=== PATIENT | female | born 1980 | race African-American/Black ===

== ENCOUNTER 2016-05-06 12:24 | Emergency (ER) | payer OTHER ==
[~2016-05-06] VITALS: Ht 162.6 cm; Wt 78.5 kg
[2016-05-06] MEDS ORDERED: IV NORMAL SALINE 1000ML BAG 1,000 ML IV SCH (13:06)
--- NOTE | 2016-05-06 13:13 | PHYS DOC ---
Past Medical History Past Medical History: Asthma, COPD, CVA, Depression, GERD, Seizure Past Surgical History: Hysterectomy, Other Additional Past Surgical Histo: BTL, LEFT SHOULDER Alcohol Use: Occasionally Drug Use: None Adult General Chief Complaint Chief Complaint: ABDOMINAL PAIN HPI HPI Patient is a 35 year old female who presents with pain for the last 2 days. His left upper quadrant sharp stabbing in nature that he makes it better or worse. She's been taking meloxicam for her left shoulder injury for the last several months. She also hasn't a bowel movement for 3 days. She's had a in the past otherwise no other abdominal surgeries. She has a history of seizures. Review of Systems Review of Systems Constitutional: Denies fever or chills [] Eyes: Denies change in visual acuity, redness, or eye pain [] HENT: Denies nasal congestion or sore throat [] Respiratory: Denies cough or shortness of breath [] Cardiovascular: No additional information not addressed in HPI [] GI: Denies nausea, vomiting, bloody stools or diarrhea, positive for abdominal pain [] : Denies dysuria or hematuria [] Musculoskeletal: Denies back pain or joint pain [] Integument: Denies rash or skin lesions [] Neurologic: Denies headache, focal weakness or sensory changes [] Endocrine: Denies polyuria or polydipsia [] Current Medications Current Medications Current Medications Medications (Trade) Dose Ordered Sig/Natividad Start Time Stop Time Status Last Admin Dose Admin Fentanyl Citrate (Fentanyl 2ml Vial) 50 mcg PRN Q15MIN PRN 05/06/16 13:45 05/07/16 13:44 05/06/16 15:27 50 MCG Iohexol (Omnipaque 300 Mg/ml) 75 ml 1X ONCE 05/06/16 14:00 05/06/16 14:01 DC Morphine Sulfate 4 mg 4 mg PRN Q15MIN PRN 05/06/16 13:15 05/06/16 13:36 DC Sodium Chloride (Iv Sodium Chloride 0.9% 1000ml Bag) 1,000 ml @ 1,000 mls/hr Q1H 05/06/16 13:06 05/06/16 14:05 DC 05/06/16 13:40 1,000 MLS/HR Allergies Allergies Allergies Coded Allergies Type Severity Reaction Last Updated Verified bupropion Allergy Unknown 05/06/16 No morphine Allergy Unknown 05/06/16 No Physical Exam Physical Exam Constitutional: Well developed, well nourished, no acute distress, non-toxic appearance. [] HENT: Normocephalic, atraumatic, bilateral external ears normal, oropharynx moist, no oral exudates, nose normal. [] Eyes: PERRLA, EOMI, conjunctiva normal, no discharge. [] Neck: Normal range of motion, no tenderness, supple, no stridor. [] Cardiovascular:Heart rate regular rhythm, no murmur [] Lungs & Thorax: Bilateral breath sounds clear to auscultation [] Abdomen: Bowel sounds hypoactive, soft, tender palpation left upper quadrant, no rebound or guarding, no masses, no pulsatile masses. [] Skin: Warm, dry, no erythema, no rash. [] Back: No tenderness, no CVA tenderness. [] Extremities: No tenderness, no cyanosis, no clubbing, ROM intact, no edema. [] Neurologic: Alert and oriented X 3, normal motor function, normal sensory function, no focal deficits noted. [] Psychologic: Affect normal, judgement normal, mood normal. [] Current Patient Data Vital Signs Vital Signs Date Time Temp Pulse Resp B/P Pulse Ox O2 Delivery O2 Flow Rate FiO2 05/06/16 15:27 Room Air 05/06/16 14:27 82 18 104/61 05/06/16 13:57 100 05/06/16 13:05 98.5 98.5 Lab Values Laboratory Tests Test 05/06/16 13:00 05/06/16 13:45 Urine Collection Type Unknown Urine Color Yellow Urine Clarity Cloudy Urine pH 6.5 Urine Specific [place] >=1.030 Urine Protein Negativemg/dL (NEG-TRACE) Urine Glucose (UA) Negativemg/dL (NEG) Urine Ketones (Stick) Negativemg/dL (NEG) Urine Blood Negative (NEG) Urine Nitrite Negative (NEG) Urine Bilirubin Negative (NEG) Urine Urobilinogen Dipstick 1.0mg/dL (0.2 mg/dL) Urine Leukocyte Esterase Negative (NEG) Urine RBC Occ/HPF (0-2) Urine WBC 1-4/HPF (0-4) Urine Squamous Epithelial Cells Many/LPF Urine Bacteria Moderate/HPF (0-FEW) Urine Mucus Mod/LPF Urine Opiates Screen Neg (NEG) Urine Methadone Screen Neg (NEG) Urine Barbiturates Neg (NEG) Urine Phencyclidine Screen Neg (NEG) Urine Amphetamine/Methamphetamine Neg (NEG) Urine Benzodiazepines Screen Neg (NEG) Urine Cocaine Screen Neg (NEG) Urine Cannabinoids Screen Neg (NEG) Urine Ethyl Alcohol Neg (NEG) White Blood Count 10.6x10^3/uL (4.0-11.0) Red Blood Count 3.76x10^6/uL (3.50-5.40) Hemoglobin 11.2g/dL (12.0-15.5) L Hematocrit 34.1% (36.0-47.0) L Mean Corpuscular Volume 91fL (79-100) Mean Corpuscular Hemoglobin 30pg (25-35) Mean Corpuscular Hemoglobin Concent 33g/dL (31-37) Red Cell Distribution Width 14.0% (11.5-14.5) Platelet Count 262x10^3/uL (140-400) Neutrophils (%) (Auto) 58% (31-73) Lymphocytes (%) (Auto) 35% (24-48) Monocytes (%) (Auto) 5% (0-9) Eosinophils (%) (Auto) 1% (0-3) Basophils (%) (Auto) 1% (0-3) Neutrophils # (Auto) 6.2x10^3uL (1.8-7.7) Lymphocytes # (Auto) 3.7x10^3/uL (1.0-4.8) Monocytes # (Auto) 0.5x10^3/uL (0.0-1.1) Eosinophils # (Auto) 0.1x10^3/uL (0.0-0.7) Basophils # (Auto) 0.1x10^3/uL (0.0-0.2) Sodium Level 141mmol/L (136-145) Potassium Level 4.1mmol/L (3.5-5.1) Chloride Level 109mmol/L (98-107) H Carbon Dioxide Level 24mmol/L (21-32) Anion Gap 8 (6-14) Blood Urea Nitrogen 16mg/dL (7-20) Creatinine 0.8mg/dL (0.6-1.0) Estimated GFR (Cockcroft-Gault) 98.8 BUN/Creatinine Ratio 20 (6-20) Glucose Level 108mg/dL (70-99) H Calcium Level 8.4mg/dL (8.5-10.1) L Total Bilirubin 0.2mg/dL (0.2-1.0) Direct Bilirubin < 0.1mg/dL (0.0-0.2) Aspartate Amino Transferase (AST) 11U/L (15-37) L Alanine Aminotransferase (ALT) 16U/L (14-59) Alkaline Phosphatase 50U/L (46-116) Creatine Kinase 71U/L (26-192) Total Protein 7.1g/dL (6.4-8.2) Albumin 3.7g/dL (3.4-5.0) Albumin/Globulin Ratio 1.1 (1.0-1.7) Lipase 125U/L (73-393) Laboratory Tests 05/06/16 13:45 Laboratory Tests 05/06/16 13:45 EKG EKG [] Radiology/Procedures Radiology/Procedures PATIENT: TRUMAN DUNCAN ACCOUNT: [id number] : 1980 LOCATION: ER AGE: 35 SEX: F EXAM STATUS: REG ER ORD. PHYSICIAN: MARS AVELAR MD REASON: abd pain PROCEDURE: ABD PELV W/ IV CONTRAST ONLY CT of the abdomen and pelvis with contrast, 05/06/2016: History: Abdominal pain, constipation Multidetector CT imaging was performed following an IV bolus injection of iodinated contrast material. No oral contrast material was administered as requested. The liver and gallbladder are unremarkable. No pancreatic abnormality is seen. The spleen is of normal size. A couple of tiny subcentimeter low density lesions are noted in the right kidney. These are too small to definitively characterize but are probably cysts. The kidneys show no evidence of obstruction. Single tiny intrarenal radiopacities bilaterally probably represent nonobstructing calculi. The uterus is surgically absent. There is a 2.4 cm low-density structure with an enhancing rim in the right pelvis, probably of ovarian origin. There is an adjacent 2.7 cm cystic appearing structure probably representing an additional ovarian cyst. There appears to be a trace amount of free fluid in the deep pelvis. This amount of fluid can be on a physiologic basis. The bowel loops are not dilated. There are scattered collections of stool in the colon. A portion of the appendix is visualized and shows no abnormality. No free air is evident in the abdomen or pelvis. IMPRESSION: 1. Small right ovarian cysts. 2. Single tiny bilateral nonobstructing intrarenal calculi 3. Probable small right renal cysts. DICTATED and SIGNED BY: JEY PHILLIPS MD DATE: 05/06/16 1548 CC: MARS AVELAR MD; UNKNOWN PCP NAME ~ Impressions: Abdomen pain Course & Med Decision Making Course & Med Decision Making Pertinent Labs and Imaging studies reviewed. (See chart for details) She presents with abdominal pain. CT abdomen pelvis is pending at this time. Patient rechecked at Dr. Mcdonough for final disposition. Adavied I took over at shift change. I reviewed his labs and vitals which were unremarkable and stable. CTA head and/pelvis doesn't show any significant aspiration for her discomfort, though she does have a fair amount of stool and has described some constipation. I have recommended MiraLAX, magnesium citrate and MiraLAX doesn't work, increase fluids and fiber, and primary care follow- up. Return precautions were discussed were answered prior to discharge. Dragon Disclaimer Dragon Disclaimer This electronic medical record was generated, in whole or in part, using a voice recognition dictation system. Departure Departure Impression: Primary Impression: Abdominal pain Additional Impression: Constipation Disposition: 01 HOME, SELF-CARE Condition: STABLE Referrals: UNKNOWN PCP NAME (PCP) Patient Instructions: Abdominal Pain, [id number], Constipation, Adult, Easy- to-Read Additional Instructions: Increase the fiber and fluid near diet. Take MiraLAX once to twice daily until you're having regular bowel movements. If you're unable to stimulate a large bowel movement with MiraLAX, consider purchasing magnesium citrate and drinking one half the bottle. If after 4 hours she still haven't had a bowel movement, drink the rest of the magnesium citrate. Follow-up with your primary care doctor in clinic soon. Take Tylenol or ibuprofen as needed for pain. Problem Qualifiers Primary Impression: Abdominal pain Abdominal location: left upper quadrant Qualified Code: R10.12 - Left upper quadrant pain Additional Impression: Constipation Constipation type: unspecified constipation type Qualified Code: K59.00 - Constipation, unspecified MARS AVELAR MD May 06, 2016 13:13 CINDY MCDONOUGH MD May 06, 2016 17:00
[2016-05-06] MEDS ORDERED: MORPHINE SULFATE 4 MG/ML DISP.SYRIN. IV/SQ PRN (13:15)
[2016-05-06 13:30] LABS: BILIRUBIN,URINE NEGATIVE (NEG); GLUCOSE,URINE NEGATIVE (NEG); NITRITE,URINE NEGATIVE (NEG); PH,URINE 6.5; PROTEIN,URINE NEGATIVE (NEG-TRACE)
[2016-05-06 13:37] LABS: BARBITURATES NEG (NEG); BENZODIAZEPINES NEG (NEG); CANNABINOIDS NEG (NEG); COCAINE NEG (NEG); METHADONE NEG (NEG); OPIATES NEG (NEG); PHENCYCLIDINE NEG (NEG)
[2016-05-06 13:38] LABS: ETHANOL, URINE NEG (NEG)
[2016-05-06 13:39] LABS: RBC,URINE OCC /HPF (0-2)
[2016-05-06 13:40] LABS: BACTERIA,URINE MODERATE /HPF (0-FEW); SQUAMOUS EPITHELIAL CELL,UR MANY /LPF
[2016-05-06] MEDS: FENTANYL PF 100 MCG/2 ML VIAL. IV PRN ×2 (13:40→15:27)
[2016-05-06] MEDS ORDERED: IOHEXOL 300 MG/ML 75 ML VIAL IV ONE (14:00)
[2016-05-06 14:16] LABS: BASO # 0.1 x10^3/uL (0.0-0.2); BASO % 1 % (0-3); EOS % 1 % (0-3); HEMATOCRIT 34.1 % (36.0-47.0); HEMOGLOBIN 11.2 g/dL (12.0-15.5); LYMPH # 3.7 x10^3/uL (1.0-4.8); LYMPH % 35 % (24-48); MEAN CORPUSCULAR HEMOGLOBIN 30 pg (25-35); MEAN CORPUSCULAR HGB CONC 33 g/dL (31-37); MEAN CORPUSCULAR VOLUME 91 fL (79-100); MONO % 5 % (0-9); NEUT % 58 % (31-73); PLATELET COUNT 262 x10^3/uL (140-400); RED BLOOD COUNT 3.76 x10^6/uL (3.50-5.40); WHITE BLOOD COUNT 10.6 x10^3/uL (4.0-11.0)
[2016-05-06 14:38] LABS: BLOOD UREA NITROGEN 16 mg/dL (7-20); CALCIUM 8.4 mg/dL (8.5-10.1); CREATININE 0.8 mg/dL (0.6-1.0); GLUCOSE 108 mg/dL (70-99)
[2016-05-06 14:39] LABS: ANION GAP 8 (6-14); BUN/CREATININE RATIO 20 (6-20); CARBON DIOXIDE 24 mmol/L (21-32); CHLORIDE 109 mmol/L (98-107); GFR 98.8; POTASSIUM 4.1 mmol/L (3.5-5.1); SODIUM 141 mmol/L (136-145)
[2016-05-06 14:52] LABS: ALBUMIN 3.7 g/dL (3.4-5.0); ALBUMIN/GLOBULIN RATIO 1.1 (1.0-1.7); ALK PHOS 50 U/L (46-116); ALT (SGPT) 16 U/L (14-59); AST (SGOT) 11 U/L (15-37); CREATINE KINASE 71 U/L (26-192); DIRECT BILIRUBIN < 0.1 mg/dL (0.0-0.2); TOTAL BILIRUBIN 0.2 mg/dL (0.2-1.0); TOTAL PROTEIN 7.1 g/dL (6.4-8.2)
--- NOTE | 2016-05-06 16:03 | RAD ---
CT of the abdomen and pelvis with contrast, 05/06/2016: History: Abdominal pain, constipation Multidetector CT imaging was performed following an IV bolus injection of iodinated contrast material. No oral contrast material was administered as requested. The liver and gallbladder are unremarkable. No pancreatic abnormality is seen. The spleen is of normal size. A couple of tiny subcentimeter low density lesions are noted in the right kidney. These are too small to definitively characterize but are probably cysts. The kidneys show no evidence of obstruction. Single tiny intrarenal radiopacities bilaterally probably represent nonobstructing calculi. The uterus is surgically absent. There is a 2.4 cm low-density structure with an enhancing rim in the right pelvis, probably of ovarian origin. There is an adjacent 2.7 cm cystic appearing structure probably representing an additional ovarian cyst. There appears to be a trace amount of free fluid in the deep pelvis. This amount of fluid can be on a physiologic basis. The bowel loops are not dilated. There are scattered collections of stool in the colon. A portion of the appendix is visualized and shows no abnormality. No free air is evident in the abdomen or pelvis. IMPRESSION: 1. Small right ovarian cysts. 2. Single tiny bilateral nonobstructing intrarenal calculi 3. Probable small right renal cysts.
[2016-05-06 16:27] VITALS: BP 140/63
== END 2016-05-06 17:25 | disposition home or self-care (01) ==
LOC: ER 12:24
DX: K59.00 Constipation, unspecified (principal); J45.909 Unspecified asthma, uncomplicated; J44.9 Chronic obstructive pulmonary disease, unspecified; F32.9 Major depressive disorder, single episode, unspecified; K21.9 Gastro-esophageal reflux disease without esophagitis; Z90.710 Acquired absence of both cervix and uterus; Z88.5 Allergy status to narcotic agent; Z88.8 Allergy status to other drugs, medicaments and biological substances
CPT/HCPCS: 36415; 74177; 80053; 80076; 81001; 82550; 83690; 85027; 87086; 96361; 96374; 99285; G0481; J3010; J7030; Q9967

== ENCOUNTER 2016-09-17 17:31 | Emergency (ER) | payer OTHER ==
[~2016-09-17] VITALS: Ht 162.6 cm; Wt 83.0 kg
--- NOTE | 2016-09-17 17:58 | PHYS DOC ---
Past Medical History Past Medical History: Asthma, COPD, CVA, Depression, GERD, Seizure Additional Past Medical Histor: R SIDE DEFICITS Past Surgical History: Hysterectomy, Other Additional Past Surgical Histo: BTL, LEFT SHOULDER Alcohol Use: Rarely Drug Use: None Adult General Chief Complaint Chief Complaint: ABDOMINAL PAIN HPI HPI Patient is a 36 year old female who presents with left flank pain has been present for the last week and a half. Patient states that the left flank pain has gotten worse the past couple days with a history of kidney stones. Patient denies any fevers. Patient denies any dysuria. Patient denies any chest pain or shortness of breath. Patient denies any nausea vomiting or diarrhea. Patient is no other complaints. Pertinent exam findings: Positive CVA tenderness on the left with left flank pain on palpation ED course: Patient seen and examined upon arrival to emergency room CBC, CMP, UA, U , CT of abdomen and pelvis without contrast was ordered 2025: Explain CT results and lab results the patient and recommended discharge with short-term follow-up with PCP. Pertinent results: CT the abdomen and pelvis with contrast: IMPRESSION: 1. Nonobstructive left renal stones without hydronephrosis or definite radiopaque obstructive ureter stone. Laboratory was unremarkable MDM: After reviewing the chart, CC/HPI/PMH, physical exam, [lab results], [ radiological results], I do not believe the patient has intra-abdominal emergency warranting further workup and/or admission at this time. I believe the patient's pain is caused from renal colic and prescribe her some [place]. Recommended patient follow PCP in one to 2 days. Additional verbal discharge instructions were provided to the patient and that if symptoms get worse or any new symptoms arise that are worrisome to the patient she is to return to the emergency room immediately Review of Systems Review of Systems GEN: Denies fevers, chills, sweats HEENT: Denies blurred vision, sore throat CV: Denies chest pain RESP: Denies shortness of air, cough GI: Flank pain NEURO: Denies confusion, dizziness MSK: Denies weakness, joint pain/swelling Current Medications Current Medications Current Medications Medications (Trade) Dose Ordered Sig/Natividad Start Time Stop Time Status Last Admin Dose Admin Fentanyl Citrate (Fentanyl 2ml Vial) 100 mcg STK-MED ONCE 09/17/16 20:28 09/17/16 20:29 DC Ketorolac Tromethamine (Toradol) 30 mg 1X ONCE 09/17/16 18:00 09/17/16 18:01 DC 09/17/16 19:30 30 MG Sodium Chloride 1,000 ml @ 1,000 mls/hr 1X ONCE 09/17/16 18:00 09/17/16 18:59 DC 09/17/16 19:30 1,000 MLS/HR Allergies Allergies Allergies Coded Allergies Type Severity Reaction Last Updated Verified bupropion Allergy Unknown 05/06/16 No morphine Allergy Unknown 05/06/16 No Physical Exam Physical Exam GEN.: No apparent distress. Alert and oriented. HEENT: Head is normocephalic, atraumatic NECK: Supple. LUNGS: CTAB. HEART: RRR, S1, S2 present. Peripheral pulses intact ABDOMEN: Soft, left flank pain with palpation, left CVA tenderness. Positive bowel sounds. EXTREMITIES: Without any cyanosis. NEUROLOGIC: Normal speech, normal tone PSYCHIATRIC: Normal affect, normal mood. SKIN: No ulcerations Current Patient Data Vital Signs Vital Signs Date Time Temp Pulse Resp B/P (MAP) Pulse Ox O2 Delivery O2 Flow Rate FiO2 09/17/16 20:33 20 97 Room Air 09/17/16 17:50 98.8 95 112/72 (85) 98.8 Lab Values Laboratory Tests Test 09/17/16 17:55 09/17/16 19:45 Urine Collection Type Unknown Urine Color Yellow Urine Clarity Turbid Urine pH 7.5 Urine Specific [place] 1.020 Urine Protein Negative mg/dL (NEG-TRACE) Urine Glucose (UA) Negative mg/dL (NEG) Urine Ketones (Stick) Negative mg/dL (NEG) Urine Blood Negative (NEG) Urine Nitrite Negative (NEG) Urine Bilirubin Negative (NEG) Urine Urobilinogen Dipstick 1.0 mg/dL (0.2 mg/dL) Urine Leukocyte Esterase Negative (NEG) Urine RBC 0 /HPF (0-2) Urine WBC Occ /HPF (0-4) Urine Squamous Epithelial Cells Mod /LPF Urine Amorphous Sediment Present /HPF Urine Bacteria Few /HPF (0-FEW) White Blood Count 13.6 x10^3/uL (4.0-11.0) H Red Blood Count 4.01 x10^6/uL (3.50-5.40) Hemoglobin 12.0 g/dL (12.0-15.5) Hematocrit 34.7 % (36.0-47.0) L Mean Corpuscular Volume 87 fL (79-100) Mean Corpuscular Hemoglobin 30 pg (25-35) Mean Corpuscular Hemoglobin Concent 35 g/dL (31-37) Red Cell Distribution Width 14.2 % (11.5-14.5) Platelet Count 306 x10^3/uL (140-400) Neutrophils (%) (Auto) 54 % (31-73) Lymphocytes (%) (Auto) 39 % (24-48) Monocytes (%) (Auto) 5 % (0-9) Eosinophils (%) (Auto) 2 % (0-3) Basophils (%) (Auto) 1 % (0-3) Neutrophils # (Auto) 7.4 x10^3uL (1.8-7.7) Lymphocytes # (Auto) 5.3 x10^3/uL (1.0-4.8) H Monocytes # (Auto) 0.7 x10^3/uL (0.0-1.1) Eosinophils # (Auto) 0.2 x10^3/uL (0.0-0.7) Basophils # (Auto) 0.1 x10^3/uL (0.0-0.2) Sodium Level 142 mmol/L (136-145) Potassium Level 3.6 mmol/L (3.5-5.1) Chloride Level 107 mmol/L (98-107) Carbon Dioxide Level 21 mmol/L (21-32) Anion Gap 14 (6-14) Blood Urea Nitrogen 15 mg/dL (7-20) Creatinine 0.9 mg/dL (0.6-1.0) Estimated GFR (Cockcroft-Gault) 85.7 BUN/Creatinine Ratio 17 (6-20) Glucose Level 104 mg/dL (70-99) H Calcium Level 9.6 mg/dL (8.5-10.1) Total Bilirubin 0.1 mg/dL (0.2-1.0) L Aspartate Amino Transferase (AST) 11 U/L (15-37) L Alanine Aminotransferase (ALT) 17 U/L (14-59) Alkaline Phosphatase 72 U/L (46-116) Total Protein 8.1 g/dL (6.4-8.2) Albumin 4.0 g/dL (3.4-5.0) Albumin/Globulin Ratio 1.0 (1.0-1.7) Lipase 88 U/L (73-393) Laboratory Tests 09/17/16 19:45 Laboratory Tests 09/17/16 19:45 EKG EKG [] Radiology/Procedures Radiology/Procedures CT the abdomen and pelvis without contrast IMPRESSION: 1. Nonobstructive left renal stones without hydronephrosis or definite radiopaque obstructive ureter stone. [] Course & Med Decision Making Course & Med Decision Making Pertinent Labs and Imaging studies reviewed. (See chart for details) [] Dragon Disclaimer Dragon Disclaimer This electronic medical record was generated, in whole or in part, using a voice recognition dictation system. Departure Departure Impression: Primary Impression: Left flank pain Additional Impression: Renal colic Disposition: HOME, SELF-CARE Condition: IMPROVED Referrals: UNKNOWN PCP NAME (PCP) Patient Instructions: Flank Pain, [id number] Additional Instructions: Please follow up with her family doctor in one to 2 days Scripts Hydrocodone/Apap 5-325 (NORCO 5-325 TABLET) 1 Each Tablet 1 TAB PO PRN Q6HRS Y for PAIN for 2 Days, #10 TAB 0 Refills Prov: AMARILIS CERVANTES DO 09/17/16 Problem Qualifiers AMARILIS CERVANTES DO September 17, 2016 17:58
[2016-09-17] MEDS ORDERED: IV NORMAL SALINE 1000ML BAG 1,000 ML IV ONE (18:00)
[2016-09-17] MEDS ORDERED: KETOROLAC TROMETHAMINE 30 MG/ML INJ. IV ONE (18:00)
[2016-09-17 18:30] LABS: BILIRUBIN,URINE NEGATIVE (NEG); GLUCOSE,URINE NEGATIVE (NEG); NITRITE,URINE NEGATIVE (NEG); PH,URINE 7.5; PROTEIN,URINE NEGATIVE (NEG-TRACE)
--- NOTE | 2016-09-17 18:39 | RAD ---
INDICATION: severe left flank pain, hx kidney stones, prior sent COMPARISON: May 06, 2016 TECHNIQUE: Axial CT images were obtained through the abdomen and pelvis without intravenous contrast. Limited assessment of solid organ structures and vasculature secondary to lack of intravenous contrast. One or more of the following individualized dose reduction techniques were utilized for this examination: 1. Automated exposure control; 2. Adjustment of the mA and/or kV according to patient size; 3. Use of iterative reconstruction technique. FINDINGS: Abdomen: Chest Base: Partially imaged without gross abnormality. Vessels: No abdominal aortic aneurysm. Liver/Biliary: No intrahepatic biliary duct dilation. Pancreas: No peripancreatic edema. Spleen: Normal. Kidneys/Adrenal: Multiple nonobstructive left renal stones measuring up to 3 mm. No hydronephrosis. GI: The appendix does not appear grossly inflamed. No dilated loops of bowel suggest obstruction. Pelvis: Bladder: Largely decompressed IMPRESSION: 1. Nonobstructive left renal stones without hydronephrosis or definite radiopaque obstructive ureter stone. Electronically signed by: Yossi Garnica MD (09/17/2016 6:36 PM)
[2016-09-17 18:50] LABS: BACTERIA,URINE FEW /HPF (0-FEW); RBC,URINE 0 /HPF (0-2); SQUAMOUS EPITHELIAL CELL,UR MOD /LPF; WBC,URINE OCC /HPF (0-4)
[2016-09-17 19:53] LABS: BASO # 0.1 x10^3/uL (0.0-0.2); BASO % 1 % (0-3); EOS % 2 % (0-3); HEMATOCRIT 34.7 % (36.0-47.0); LYMPH # 5.3 x10^3/uL (1.0-4.8); LYMPH % 39 % (24-48); MEAN CORPUSCULAR HEMOGLOBIN 30 pg (25-35); MEAN CORPUSCULAR HGB CONC 35 g/dL (31-37); MEAN CORPUSCULAR VOLUME 87 fL (79-100); MONO % 5 % (0-9); NEUT % 54 % (31-73); PLATELET COUNT 306 x10^3/uL (140-400); RED BLOOD COUNT 4.01 x10^6/uL (3.50-5.40); RED CELL DISTRIBUTION WIDTH 14.2 % (11.5-14.5); WHITE BLOOD COUNT 13.6 x10^3/uL (4.0-11.0)
[2016-09-17 20:10] LABS: CALCIUM 9.6 mg/dL (8.5-10.1); CREATININE 0.9 mg/dL (0.6-1.0); GFR 85.7; POTASSIUM 3.6 mmol/L (3.5-5.1)
[2016-09-17 20:15] LABS: TOTAL BILIRUBIN 0.1 mg/dL (0.2-1.0); TOTAL PROTEIN 8.1 g/dL (6.4-8.2)
[2016-09-17] MEDS ORDERED: fentaNYL PF VIAL 100 MCG/2 ML VIAL ONE (20:28)
[2016-09-17 20:30] VITALS: BP 161/72
[2016-09-17] MEDS ORDERED: fentaNYL PF VIAL 100 MCG/2 ML VIAL IV ONE (20:30)
[2016-09-17] MEDS ORDERED: HYDR-971 PO (20:31)
== END 2016-09-17 20:40 | disposition home or self-care (01) ==
LOC: ER 17:31
DX: N23 Unspecified renal colic (principal); J45.909 Unspecified asthma, uncomplicated; J44.9 Chronic obstructive pulmonary disease, unspecified; F32.9 Major depressive disorder, single episode, unspecified; K21.9 Gastro-esophageal reflux disease without esophagitis; Z90.710 Acquired absence of both cervix and uterus; Z88.5 Allergy status to narcotic agent; Z88.8 Allergy status to other drugs, medicaments and biological substances; Z86.73 Personal history of transient ischemic attack (TIA), and cerebral infarction without residual deficits
CPT/HCPCS: 36415; 74176; 80053; 81001; 83690; 85027; 96361; 96374; 96375; 99285; J1885; J3010; J7030

== ENCOUNTER 2017-04-02 16:00 | Emergency (ER) | payer OTHER ==
[~2017-04-02] VITALS: Ht 162.6 cm; Wt 89.4 kg
[~2017-04-02 16:00] MED LIST: HYDR-971 PO
[2017-04-02 16:06] VITALS: BP 151/76
[2017-04-02] MEDS ORDERED: HYDR25SU18 RC (16:22)
[2017-04-02] MEDS ORDERED: HYDR30CR61 TP (16:22)
--- NOTE | 2017-04-02 16:22 | PHYS DOC ---
Past Medical History Past Medical History: Asthma, COPD, CVA, Depression, GERD, Seizure Additional Past Medical Histor: R SIDE DEFICITS Past Surgical History: Hysterectomy, Tubal ligation, Other Additional Past Surgical Histo: BTL, LEFT SHOULDER Alcohol Use: Rarely Drug Use: None Adult General Chief Complaint Chief Complaint: HEMORRHOIDS [facility] HPI Patient is a 36 year old female presents to the emergency department with complaints of hemorrhoid pain. Patient states for 3 weeks she's had pain in the hemorrhoids. She is using [id number] Anusol and Tucks pads without relief of symptoms. She reports that she has seen a pan washer in the past related to her hemorrhoids. She states she is not constipated. She has had intermittent episodes of diarrhea and is currently taking stool softeners. She denies abdominal pain. Review of Systems Review of Systems Constitutional: Denies fever or chills [] Eyes: Denies change in visual acuity, redness, or eye pain [] HENT: Denies nasal congestion or sore throat [] Respiratory: Denies cough or shortness of breath [] Cardiovascular: No additional information not addressed in HPI [] GI: Denies abdominal pain, nausea, vomiting, bloody stools or diarrhea [] : Denies dysuria or hematuria , complain of hemorrhoids Musculoskeletal: Denies back pain or joint pain [] Integument: Denies rash or skin lesions [] Neurologic: Denies headache, focal weakness or sensory changes [] Endocrine: Denies polyuria or polydipsia [] All other systems were reviewed and found to be within normal limits, except as documented in this note. Allergies Allergies Allergies Coded Allergies Type Severity Reaction Last Updated Verified bupropion Allergy Unknown 05/06/16 No morphine Allergy Unknown 05/06/16 No Physical Exam Physical Exam Constitutional: Well developed, well nourished, no acute distress, non-toxic appearance. [] Cardiovascular:Heart rate regular rhythm, no murmur [] Lungs & Thorax: Bilateral breath sounds clear to auscultation [] Abdomen: Bowel sounds normal, soft, no tenderness, no masses, no pulsatile masses. Sternal hemorrhoids, nonthrombosed[] EKG EKG [] Radiology/Procedures Radiology/Procedures [] Course & Med Decision Making Course & Med Decision Making Pertinent Labs and Imaging studies reviewed. (See chart for details) [] Dragon Disclaimer Dragon Disclaimer This electronic medical record was generated, in whole or in part, using a voice recognition dictation system. Departure Departure Impression: Primary Impression: External hemorrhoid Disposition: 01 HOME, SELF-CARE Condition: STABLE Referrals: UNKNOWN PCP NAME (PCP) Patient Instructions: Hemorrhoids Additional Instructions: Follow up gastroenterology, [phone] Scripts Hydrocortisone (ANUSOL-HC) 30 Gm Cream..g. 1 TY TP BID, #30 GM 1 Refill Prov: ANTWON ROSAS APRN 04/02/17 Hydrocortisone Acetate (ANUSOL-HC) 25 Mg Supp.rect 1 SUPP RC BID, #28 SUPP 1 Refill Prov: ANTWON ROSAS APRN 04/02/17 ANTWON ROSAS APRN Apr 02, 2017 16:22
== END 2017-04-02 16:33 | disposition home or self-care (01) ==
LOC: ER 16:00
DX: K64.4 Residual hemorrhoidal skin tags (principal); J44.9 Chronic obstructive pulmonary disease, unspecified; F32.9 Major depressive disorder, single episode, unspecified; K21.9 Gastro-esophageal reflux disease without esophagitis; Z86.73 Personal history of transient ischemic attack (TIA), and cerebral infarction without residual deficits; Z90.710 Acquired absence of both cervix and uterus; Z98.51 Tubal ligation status; Z88.5 Allergy status to narcotic agent; Z88.8 Allergy status to other drugs, medicaments and biological substances
CPT/HCPCS: 99283

== ENCOUNTER 2017-04-26 16:34 | Emergency (ER) | payer OTHER ==
[2017-04-26 17:46] LABS: ADD MAN DIFF? NO
[2017-04-26 17:49] LABS: BASO # 0.1 x10^3/uL (0.0-0.2); BASO % 1 % (0-3); EOS # 0.1 x10^3/uL (0.0-0.7); EOS % 1 % (0-3); HEMATOCRIT 35.9 % (36.0-47.0); HEMOGLOBIN 12.4 g/dL (12.0-15.5); LYMPH # 4.6 x10^3/uL (1.0-4.8); LYMPH % 43 % (24-48); MEAN CORPUSCULAR HEMOGLOBIN 29 pg (25-35); MEAN CORPUSCULAR HGB CONC 35 g/dL (31-37); MEAN CORPUSCULAR VOLUME 84 fL (79-100); MONO # 0.4 x10^3/uL (0.0-1.1); MONO % 4 % (0-9); NEUT # 5.4 x10^3uL (1.8-7.7); NEUT % 51 % (31-73); PLATELET COUNT 383 x10^3/uL (140-400); RED BLOOD COUNT 4.28 x10^6/uL (3.50-5.40); RED CELL DISTRIBUTION WIDTH 14.4 % (11.5-14.5); WHITE BLOOD COUNT 10.7 x10^3/uL (4.0-11.0)
[2017-04-26] MEDS: cloNIDine HCL 0.1 MG TABLET PO (17:57)
[2017-04-26 17:58] LABS: URINE HCG POC HCG NEGATIVE (Negative)
[2017-04-26 18:02] LABS: ANION GAP 11 (6-14); BLOOD UREA NITROGEN 9 mg/dL (7-20); BUN/CREATININE RATIO 11 (6-20); CALCIUM 8.6 mg/dL (8.5-10.1); CARBON DIOXIDE 25 mmol/L (21-32); CHLORIDE 105 mmol/L (98-107); CREATININE 0.8 mg/dL (0.6-1.0); GFR 98.2; GLUCOSE 91 mg/dL (70-99); POTASSIUM 3.5 mmol/L (3.5-5.1); SODIUM 141 mmol/L (136-145)
[2017-04-26 18:09] LABS: ALBUMIN 3.7 g/dL (3.4-5.0); ALBUMIN/GLOBULIN RATIO 0.9 (1.0-1.7); ALK PHOS 70 U/L (46-116); ALT (SGPT) 18 U/L (14-59); AST (SGOT) 13 U/L (15-37); TOTAL BILIRUBIN 0.3 mg/dL (0.2-1.0); TOTAL PROTEIN 7.6 g/dL (6.4-8.2)
[2017-04-26 18:19] LABS: BILIRUBIN,URINE NEGATIVE (NEG); CLARITY,URINE CLOUDY; COLOR,URINE AMBER; GLUCOSE,URINE NEGATIVE (NEG); NITRITE,URINE POSITIVE (NEG); PROTEIN,URINE NEGATIVE (NEG-TRACE); UROBILINOGEN,URINE 0.2 mg/dL (0.2 mg/dL)
[2017-04-26 18:35] LABS: BACTERIA,URINE MANY /HPF (0-FEW); SQUAMOUS EPITHELIAL CELL,UR MANY /LPF
== END 2017-04-26 19:27 | disposition home or self-care (01) ==
LOC: ER 16:34
DX: F13.239 Sedative, hypnotic or anxiolytic dependence with withdrawal, unspecified (principal); F41.9 Anxiety disorder, unspecified; J44.9 Chronic obstructive pulmonary disease, unspecified; K21.9 Gastro-esophageal reflux disease without esophagitis; Z86.73 Personal history of transient ischemic attack (TIA), and cerebral infarction without residual deficits; Z87.820 Personal history of traumatic brain injury; Z90.710 Acquired absence of both cervix and uterus; Z98.51 Tubal ligation status; Z88.5 Allergy status to narcotic agent; Z88.8 Allergy status to other drugs, medicaments and biological substances; T42.4X5A Adverse effect of benzodiazepines, initial encounter; Y92.89 Other specified places as the place of occurrence of the external cause
CPT/HCPCS: 36415; 71045; 80053; 81001; 81025; 85025; 87086; 87186; 93005; 99285-25

== ENCOUNTER 2017-09-27 17:30 | Emergency (ER) | payer OTHER ==
[2017-09-27] MEDS: predniSONE 20 MG TABLET PO (18:06)
[2017-09-27] MEDS: HYDROcodone/APAP 5/325MG 1 TAB TABLET PO (18:06)
[2017-09-27] MEDS ORDERED: KETOROLAC 60 MG/2 ML INJ. IM (18:15)
[2017-09-27] MEDS ORDERED: fentaNYL PF VIAL 100 MCG/2 ML VIAL IM (18:15)
== END 2017-09-27 18:17 | disposition home or self-care (01) ==
LOC: ER 18:17
DX: S39.012A Strain of muscle, fascia and tendon of lower back, initial encounter (principal); J44.9 Chronic obstructive pulmonary disease, unspecified; K21.9 Gastro-esophageal reflux disease without esophagitis; Z86.73 Personal history of transient ischemic attack (TIA), and cerebral infarction without residual deficits; Z90.710 Acquired absence of both cervix and uterus; Z98.51 Tubal ligation status; Z88.5 Allergy status to narcotic agent; Z88.8 Allergy status to other drugs, medicaments and biological substances; Z91.040 Latex allergy status; X50.0XXA Overexertion from strenuous movement or load, initial encounter; Y93.89 Activity, other specified; Y99.8 Other external cause status; Y92.89 Other specified places as the place of occurrence of the external cause
CPT/HCPCS: 99283; J7512

== ENCOUNTER 2017-12-03 17:17 | Emergency (ER) | payer OTHER ==
[~2017-12-03] VITALS: Ht 162.6 cm; Wt 80.7 kg
[~2017-12-03 17:17] MED LIST changes: +ACET325T9 PO; +AMIT25TA PO; +BACL10TA PO; +BUDE0.5A NEB; +CLON0.1T12 PO; +CLON0.5T11 PO; +DOCU-109 PO; +FAMO20TA5 PO; +FLUT16SP NS; +GUAI600T47 PO; +HYDR25SU18 RC; +HYDR30CR61 TP; +LEVO500T59 PO; +MELO7.5T29 PO; +Pantoprazole PO; +QUET100T4 PO; +VENL150C6 PO
[2017-12-03 17:35] VITALS: BP 109/72
[2017-12-03] MEDS ORDERED: IBUPROFEN 800 MG TABLET. PO ONE (17:45)
[2017-12-03] MEDS ORDERED: DEXAMETHASONE SOD PHOS 4 MG/ML VIAL IM ONE (17:45)
[2017-12-03] MEDS ORDERED: AMOX1TAB61 PO (18:01)
--- NOTE | 2017-12-03 18:01 | PHYS DOC ---
Past Medical History Past Medical History: Anxiety, Asthma, COPD, CVA, Depression, GERD, Seizure, Stroke Additional Past Medical Histor: R SIDE DEFICITS, TBI, INSOMNIA Past Surgical History: Hysterectomy, Tubal ligation, Other Additional Past Surgical Histo: BTL, LEFT CLAVICLE Alcohol Use: None Drug Use: None Adult General Chief Complaint Chief Complaint: SORE THROAT HPI HPI Patient is a 37 year old female presents to the ED complaining of sore throat 3 days. Associated symptoms include subjective fever, rhinorrhea and headache. Describes the pain as sharp. Rates the pain as 6 out of 10. Pain with swallowing. Denies dysuria, abdominal pain, chest pain, shortness of breath, nausea/vomiting, diarrhea, blood in stool or weakness. Review of Systems Review of Systems Constitutional: Complains of subjective fever. Denies chills [] Eyes: Denies change in visual acuity, redness, or eye pain [] HENT: Complains of sore throat and rhinorrhea. Respiratory: Denies cough or shortness of breath [] Cardiovascular: No additional information not addressed in HPI [] GI: Denies abdominal pain, nausea, vomiting, bloody stools or diarrhea [] : Denies dysuria or hematuria [] Musculoskeletal: Denies back pain or joint pain [] Integument: Denies rash or skin lesions [] Neurologic: Denies headache, focal weakness or sensory changes [] All other systems were reviewed and found to be within normal limits, except as documented in this note. Current Medications Current Medications Current Medications Medications (Trade) Dose Ordered Sig/[facility] Start Time Stop Time Status Last Admin Dose Admin Dexamethasone Sodium Phosphate (Decadron) 8 mg 1X ONCE 12/03/17 17:45 12/03/17 17:46 DC 12/03/17 18:01 8 MG Ibuprofen (Motrin) 800 mg 1X ONCE 12/03/17 17:45 12/03/17 17:46 DC Allergies Allergies Allergies Coded Allergies Type Severity Reaction Last Updated Verified amoxicillin Allergy Severe diarrhea 12/03/17 Yes clavulanic acid Allergy Severe diarrhea 12/03/17 Yes Latex, Natural Rubber Allergy Intermediate Rash 08/14/17 Yes bupropion Allergy Intermediate 08/15/17 No morphine Allergy Intermediate 08/15/17 No diphenhydramine Adverse Reaction Intermediate OTHER 08/14/17 Yes Physical Exam Physical Exam Constitutional: Well developed, well nourished, no acute distress, non-toxic appearance. [] HENT: Normocephalic, atraumatic, bilateral external ears normal, oropharynx moist, nose normal. mild pharyngeal erythema with exudate. uvula midline.[] Eyes: PERRLA, EOMI, conjunctiva normal, no discharge. [] Neck: Normal range of motion, no tenderness, supple, no stridor. [] Cardiovascular:Heart rate regular rhythm, no murmur [] Lungs & Thorax: Bilateral breath sounds clear to auscultation [] Abdomen: Bowel sounds normal, soft, no tenderness, no masses, no pulsatile masses. [] Skin: Warm, dry, no erythema, no rash. [] Neurologic: Alert and oriented X 3, normal motor function, normal sensory function, no focal deficits noted. [] Psychologic: Affect normal, judgement normal, mood normal. [] Current Patient Data Vital Signs Vital Signs Date Time Temp Pulse Resp B/P (MAP) Pulse Ox O2 Delivery O2 Flow Rate FiO2 12/03/17 17:35 99.1 110 20 109/72 (84) 100 Room Air 99.1 EKG EKG [] Radiology/Procedures Radiology/Procedures [] Course & Med Decision Making Course & Med Decision Making Pertinent Labs and Imaging studies reviewed. (See chart for details) []Patient improved in the ED. States she is feeling much better. We'll treat for pharyngitis outpatient with clindamycin. Discussed symptomatic treatment, hydration, [id number] medications. Discussed follow-up and reasons to return to the ED. Patient understands and agrees with plan. Dragon Disclaimer Dragon Disclaimer This electronic medical record was generated, in whole or in part, using a voice recognition dictation system. Departure Departure Impression: Primary Impression: Pharyngitis Disposition: HOME, SELF-CARE Condition: IMPROVED Referrals: UNKNOWN PCP NAME (PCP) JOSE CARPENTER MD Patient Instructions: Viral and Bacterial Pharyngitis Scripts Clindamycin Hcl (CLINDAMYCIN HCL) 300 Mg Capsule 1 CAP PO TID for 10 Days, #30 CAP Prov: VALERY SOLITARIO 12/03/17 VALERY SOLITARIO Dec 03, 2017 18:01
[2017-12-03] MEDS ORDERED: CLIN300C8 PO (18:08)
== END 2017-12-03 18:07 | disposition home or self-care (01) ==
LOC: ER 17:17
DX: J02.9 Acute pharyngitis, unspecified (principal); R51 Headache; R50.9 Fever, unspecified; J44.9 Chronic obstructive pulmonary disease, unspecified; K21.9 Gastro-esophageal reflux disease without esophagitis; Z86.73 Personal history of transient ischemic attack (TIA), and cerebral infarction without residual deficits; Z88.1 Allergy status to other antibiotic agents; Z88.5 Allergy status to narcotic agent; Z88.8 Allergy status to other drugs, medicaments and biological substances; Z91.040 Latex allergy status
CPT/HCPCS: 96372; 99283; J1100

== ENCOUNTER 2018-01-24 11:13 | Emergency (ER) | payer OTHER ==
[~2018-01-24] VITALS: Ht 162.6 cm; Wt 83.5 kg
[~2018-01-24 11:13] MED LIST changes: +AMOX1TAB61 PO; +CLIN300C8 PO
[2018-01-24 11:25] VITALS: BP 131/62
[2018-01-24] MEDS ORDERED: NAPROXEN 500 MG TABLET PO STA (11:49)
[2018-01-24] MEDS ORDERED: HYDROcodone/APAP 5/325MG 1 TAB TABLET PO ONE (12:00)
--- NOTE | 2018-01-24 12:27 | PHYS DOC ---
Past Medical History Past Medical History: Anxiety, Asthma, COPD, CVA, Depression, GERD, Seizure, Stroke Additional Past Medical Histor: R SIDE DEFICITS, TBI, INSOMNIA Past Surgical History: Hysterectomy, Tubal ligation, Other Additional Past Surgical Histo: [place] [facility] [place] Use: None Drug Use: None Adult General Chief Complaint Chief Complaint: MECHANICAL FALL HPI HPI Patient is a 37 year old female with history of CVA, anxiety, COPD, who presents today to be evaluated status post falling. Patient states yesterday she was walking down some steps when she slid and fell down 5 steps. Patient denies any loss of consciousness. She states she has 8 out of 10 pain to her left shoulder, right hip, right knee and right ankle. Patient denies any neck pain. Denies any head pain. Denies any hematuria. Review of Systems Review of Systems Constitutional: Denies fever or chills [] Eyes: Denies change in visual acuity, redness, or eye pain [] HENT: Denies nasal congestion or sore throat [] Respiratory: Denies cough or shortness of breath [] Cardiovascular: No additional information not addressed in HPI [] GI: Denies abdominal pain, nausea, vomiting, bloody stools or diarrhea [] : Denies dysuria or hematuria [] Musculoskeletal: Reports left shoulder pain, right hip pain, right knee and right ankle pain] Integument: Denies rash or skin lesions [] Neurologic: Denies headache, focal weakness or sensory changes [] All other systems were reviewed and found to be within normal limits, except as documented in this note. Current Medications Current Medications Current Medications Medications (Trade) Dose Ordered Sig/Natividad Start Time Stop Time Status Last Admin Dose Admin Acetaminophen/ Hydrocodone Bitart (Lortab 5/325) 2 tab 1X ONCE 01/24/18 12:00 01/24/18 12:01 DC 01/24/18 12:00 2 TAB Naproxen (Naprosyn) 500 mg 1X STAT 01/24/18 11:49 01/24/18 11:51 DC 01/24/18 11:59 500 MG Allergies Allergies Allergies Coded Allergies Type Severity Reaction Last Updated Verified amoxicillin Allergy Severe diarrhea 12/03/17 Yes clavulanic acid Allergy Severe diarrhea 12/03/17 Yes Latex, Natural Rubber Allergy Intermediate Rash 08/14/17 Yes bupropion Allergy Intermediate 08/15/17 No morphine Allergy Intermediate 08/15/17 No diphenhydramine Adverse Reaction Intermediate OTHER 08/14/17 Yes Physical Exam Physical Exam Constitutional: Well developed, well nourished, no acute distress, non-toxic appearance. [] HENT: Normocephalic, atraumatic, bilateral external ears normal, oropharynx moist, no oral exudates, nose normal. [] Eyes: PERRLA, EOMI, conjunctiva normal, no discharge. [] Neck: Normal range of motion, no tenderness, supple, no stridor. [] Cardiovascular:Heart rate regular rhythm, no murmur [] Lungs & Thorax: Bilateral breath sounds clear to auscultation [] Abdomen: Bowel sounds normal, soft, no tenderness, no masses, no pulsatile masses. [] Skin: Warm, dry, no erythema, no rash. [] Back: No tenderness, no CVA tenderness. [] Extremities: Left shoulder with no obvious deformity. Slight tenderness on palpation of left anterior shoulder. Full range of motion to the left shoulder and left upper extremity. Adequate radial medial and ulnar sensation to the left upper extremity. +2 left radial pulse. Cap refill less than 2 seconds the left fingers. Right lower extremity with no obvious deformity. Diffuse tenderness on the right lateral hip right lateral knee and right lateral ankle. Full range of motion to the hip ankle and knee. +2 right radial pulse. Cap refill less than 2 seconds the right lower extremity. Sensation intact to the right lower extremity. Neurologic: Alert and oriented X 3, normal motor function, normal sensory function, no focal deficits noted. [] Psychologic: Affect normal, judgement normal, mood normal. [] Current Patient Data Vital Signs Vital Signs Date Time Temp Pulse Resp B/P (MAP) Pulse Ox O2 Delivery O2 Flow Rate FiO2 01/24/18 11:25 98.5 83 18 131/62 (85) 99 Room Air 98.5 EKG EKG [] Radiology/Procedures Radiology/Procedures []PROCEDURE: ANKLE RIGHT 3V EXAM: 1. Left shoulder 3 views. 2. Frontal pelvis with two-view right hip. 3. Right knee 4 views. 4. Right ankle 3 views. HISTORY: Fall, left shoulder, pelvic, right hip, right knee and right ankle pain. COMPARISON: None. FINDINGS: There are changes of internal fixation of a chronic healed left clavicular fracture. There are also chronic fracture deformities of the left scapular body and multiple left-sided ribs. No acute fractures are seen. A small inferior humeral osteophyte suggests early glenohumeral osteoarthritis, but the joint space is maintained. Acromioclavicular joint spaces and alignment are maintained. No fractures are identified within the pelvis or either proximal femur. The joint spaces and alignment of both hips are maintained. A BB projects over the proximal tibial metaphysis medially. No fractures are identified at the right knee. There is no joint effusion. Joint spaces and alignment are maintained. No fractures are appreciated at the right ankle. There is soft tissue swelling laterally. Joint spaces and alignment are maintained. IMPRESSION: 1. No acute fractures throughout. 2. Chronic healed fractures of the left clavicle, scapula and multiple left-sided ribs. 3. Early left glenohumeral osteoarthritis. 4. A BB projects in the soft tissues overlying the proximal right tibial metaphysis. Electronically signed by: Noemy Long MD (01/24/2018 12:48 PM) [facility] DICTATED and SIGNED BY: MAYKEL LONG MD DATE: 01/24/18 1242 Course & Med Decision Making Course & Med Decision Making Pertinent Labs and Imaging studies reviewed. (See chart for details) This is a 37-year-old female patient presenting to the ED today status post falling yesterday. She states she fell down 5 steps. No loss of consciousness. Complaining of left shoulder pain, right hip, right knee and right ankle pain. X-rays of the left shoulder, right hip with pelvis, right knee, right ankle interpreted by radiologist are negative for any acute findings. Discharged with diclofenac. Follow-up with PCP orthopedic doctor in 1-2 weeks as needed. Dragon Disclaimer Dragon Disclaimer This electronic medical record was generated, in whole or in part, using a voice recognition dictation system. Departure Departure Impression: Primary Impression: Fall down steps Additional Impressions: Contusion of left shoulder Contusion of right hip Right knee sprain Right ankle sprain Disposition: 01 HOME, SELF-CARE Condition: STABLE Referrals: UNKNOWN PCP NAME (PCP) Follow-up with your doctor in 1-2 weeks. JESS GUTIERREZ II, MD Follow-up in 1-2 weeks Patient Instructions: Ankle Sprain, Acute, with Phase I Rehab-SportsMed, Contusion, [id number], Fall Prevention and Home Safety, Knee Sprain, Easy-to- Read Additional Instructions: You were evaluated in the emergency room after falling. Your x-rays are negative for any acute findings. Try to ice and elevate the affected areas. Follow-up with your doctor in 1-2 weeks. Scripts Diclofenac Sodium (DICLOFENAC SODIUM) 50 Mg Tablet.dr 1 TAB PO BID, #20 TAB 0 Refills Prov: TIM JUDD APRN 01/24/18 Problem Qualifiers Primary Impression: Fall down steps Encounter type: initial encounter Qualified Codes: W10.8XXA - Fall (on) ( from) other stairs and steps, initial encounter Additional Impressions: Contusion of left shoulder Encounter type: initial encounter Qualified Codes: S40.012A - Contusion of left shoulder, initial encounter Contusion of right hip Encounter type: initial encounter Qualified Codes: S70.01XA - Contusion of right hip, initial encounter Right knee sprain Encounter type: initial encounter Involved ligament of knee: unspecified ligament Qualified Codes: S83.91XA - Sprain of unspecified site of right knee , initial encounter Right ankle sprain Encounter type: initial encounter Involved ligament of ankle: unspecified ligament Qualified Codes: S93.401A - Sprain of unspecified ligament of right ankle, initial encounter TIM JUDD [employer] Jan 24, 2018 12:27
--- NOTE | 2018-01-24 12:51 | RAD ---
EXAM: 1. Left shoulder 3 views. 2. Frontal pelvis with two-view right hip. 3. Right knee 4 views. 4. Right ankle 3 views. HISTORY: Fall, left shoulder, pelvic, right hip, right knee and right ankle pain. COMPARISON: None. FINDINGS: There are changes of internal fixation of a chronic healed left clavicular fracture. There are also chronic fracture deformities of the left scapular body and multiple left-sided ribs. No acute fractures are seen. A small inferior humeral osteophyte suggests early glenohumeral osteoarthritis, but the joint space is maintained. Acromioclavicular joint spaces and alignment are maintained. No fractures are identified within the pelvis or either proximal femur. The joint spaces and alignment of both hips are maintained. A BB projects over the proximal tibial metaphysis medially. No fractures are identified at the right knee. There is no joint effusion. Joint spaces and alignment are maintained. No fractures are appreciated at the right ankle. There is soft tissue swelling laterally. Joint spaces and alignment are maintained. IMPRESSION: 1. No acute fractures throughout. 2. Chronic healed fractures of the left clavicle, scapula and multiple left-sided ribs. 3. Early left glenohumeral osteoarthritis. 4. A BB projects in the soft tissues overlying the proximal right tibial metaphysis. Electronically signed by: Noemy Long MD (01/24/2018 12:48 PM) [facility]
[2018-01-24] MEDS ORDERED: DICL50TA4 PO (13:16)
== END 2018-01-24 13:25 | disposition home or self-care (01) ==
LOC: ER 11:13
DX: S83.91XA Sprain of unspecified site of right knee, initial encounter (principal); S93.401A Sprain of unspecified ligament of right ankle, initial encounter; S40.012A Contusion of left shoulder, initial encounter; S70.01XA Contusion of right hip, initial encounter; Z86.73 Personal history of transient ischemic attack (TIA), and cerebral infarction without residual deficits; J44.9 Chronic obstructive pulmonary disease, unspecified; K21.9 Gastro-esophageal reflux disease without esophagitis; Z90.710 Acquired absence of both cervix and uterus; Z98.51 Tubal ligation status; Z88.5 Allergy status to narcotic agent; Z88.8 Allergy status to other drugs, medicaments and biological substances; Z88.1 Allergy status to other antibiotic agents; Z91.040 Latex allergy status; W10.8XXA Fall (on) (from) other stairs and steps, initial encounter; Y93.89 Activity, other specified; Y92.89 Other specified places as the place of occurrence of the external cause; Y99.8 Other external cause status
CPT/HCPCS: 73030; 73502; 73564; 73610; 99284-25

== ENCOUNTER 2018-02-06 06:29 | Emergency (ER) | payer OTHER ==
[~2018-02-06] VITALS: Ht 162.6 cm; Wt 83.5 kg
[~2018-02-06 06:29] MED LIST changes: +DICL50TA4 PO
--- NOTE | 2018-02-06 06:43 | PHYS DOC ---
Past Medical History Past Medical History: Anxiety, Asthma, COPD, CVA, Depression, GERD, Seizure, Stroke Additional Past Medical Histor: R SIDE DEFICITS, TBI, INSOMNIA Past Surgical History: Hysterectomy, Tubal ligation, Other Additional Past Surgical Histo: LEFT SHOULDER, [place]VICLE FROM [facility] [place] Alcohol Use: None Drug Use: None Adult General Chief Complaint Chief Complaint: ABDOMINAL PAIN [facility] HPI Patient is a 37 year old female who presents with abdominal pain. Patient had sudden onset of upper abdominal pain 2 hours prior to presentation. She had no symptoms previous to this. No fever or chills. Pain is located in the epigastrium and didn't awaken her from sleep. Pain is rated to be severe. She denies fever or chills. No urinary symptoms. She is status post hysterectomy but has had no additional abdominal surgeries. Complaining of nausea but no vomiting. Review of Systems Review of Systems Constitutional: Denies fever or chills Eyes: Denies change in visual acuity HENT: Denies Respiratory: Denies cough Cardiovascular: No additional information not addressed in HPI GI: Denies vomiting : Denies dysuria Musculoskeletal: Denies back pain Integument: Denies rash Neurologic: Denies headache Endocrine: Denies polyuria All other systems were reviewed and found to be within normal limits, except as documented in this note. Current Medications Current Medications Current Medications Medications (Trade) Dose Ordered Sig/Natividad Start Time Stop Time Status Last Admin Dose Admin Famotidine (Pepcid Vial) 20 mg 1X ONCE 02/06/18 07:00 02/06/18 07:01 DC 02/06/18 07:09 20 MG Fentanyl Citrate (Fentanyl 2ml Vial) 75 mcg 1X ONCE 02/06/18 07:00 02/06/18 07:01 DC 02/06/18 07:10 75 MCG Info (CONTRAST GIVEN -- Rx MONITORING) 1 each PRN DAILY PRN 02/06/18 07:30 02/08/18 07:29 Iohexol (Omnipaque 300 Mg/ml) 75 ml 1X ONCE 02/06/18 07:30 02/06/18 07:31 DC 02/06/18 07:27 75 ML Multi-Ingredient Mouthwash/Gargle (Gi Cocktail) 20 ml 1X ONCE 02/06/18 08:45 02/06/18 08:46 DC 02/06/18 08:37 20 ML Ondansetron HCl (Zofran) 4 mg 1X ONCE 02/06/18 07:00 02/06/18 07:01 DC 02/06/18 07:08 4 MG Sodium Chloride 1,000 ml @ 1,000 mls/hr 1X ONCE 02/06/18 07:15 02/06/18 08:14 DC 02/06/18 07:11 1,000 MLS/HR Allergies Allergies Allergies Coded Allergies Type Severity Reaction Last Updated Verified amoxicillin Allergy Severe diarrhea 12/03/17 Yes clavulanic acid Allergy Severe diarrhea 12/03/17 Yes Latex, Natural Rubber Allergy Intermediate Rash 08/14/17 Yes bupropion Allergy Intermediate 08/15/17 No morphine Allergy Intermediate 08/15/17 No diphenhydramine Adverse Reaction Intermediate OTHER 08/14/17 Yes Physical Exam Physical Exam Constitutional: Well developed, well nourished, mild distress 2/2 pain HENT: Normocephalic, atraumatic, bilateral external ears normal, oropharynx moist Eyes: PERRLA Neck: Normal range of motion Cardiovascular:Heart rate regular rhythm, no murmur Lungs & Thorax: Bilateral breath sounds clear to auscultation Abdomen: TTP over epigastrium, no guarding or rebound Skin: Warm, dry, no erythema, no rash Extremities: No edema Neurologic: Alert and oriented X 3 Psychologic: Affect normal Current Patient Data Vital Signs Vital Signs Date Time Temp Pulse Resp B/P (MAP) Pulse Ox O2 Delivery O2 Flow Rate FiO2 02/06/18 08:00 94 32 99/65 (76) 98 Room Air 02/06/18 06:35 97.8 97.8 Lab Values Laboratory Tests Test 02/06/18 06:43 02/06/18 07:22 02/06/18 07:23 White Blood Count 10.6 x10^3/uL (4.0-11.0) Red Blood Count 4.10 x10^6/uL (3.50-5.40) Hemoglobin 12.0 g/dL (12.0-15.5) Hematocrit 35.5 % (36.0-47.0) L Mean Corpuscular Volume 87 fL (79-100) Mean Corpuscular Hemoglobin 29 pg (25-35) Mean Corpuscular Hemoglobin Concent 34 g/dL (31-37) Red Cell Distribution Width 15.4 % (11.5-14.5) H Platelet Count 337 x10^3/uL (140-400) Neutrophils (%) (Auto) 50 % (31-73) Lymphocytes (%) (Auto) 43 % (24-48) Monocytes (%) (Auto) 6 % (0-9) Eosinophils (%) (Auto) 1 % (0-3) Basophils (%) (Auto) 1 % (0-3) Neutrophils # (Auto) 5.3 x10^3uL (1.8-7.7) Lymphocytes # (Auto) 4.5 x10^3/uL (1.0-4.8) Monocytes # (Auto) 0.6 x10^3/uL (0.0-1.1) Eosinophils # (Auto) 0.1 x10^3/uL (0.0-0.7) Basophils # (Auto) 0.1 x10^3/uL (0.0-0.2) Sodium Level 141 mmol/L (136-145) Potassium Level 3.8 mmol/L (3.5-5.1) Chloride Level 103 mmol/L (98-107) Carbon Dioxide Level 26 mmol/L (21-32) Anion Gap 12 (6-14) Blood Urea Nitrogen 12 mg/dL (7-20) Creatinine 1.0 mg/dL (0.6-1.0) Estimated GFR (Cockcroft-Gault) 75.5 Glucose Level 109 mg/dL (70-99) H Calcium Level 9.6 mg/dL (8.5-10.1) Total Bilirubin 0.2 mg/dL (0.2-1.0) Direct Bilirubin 0.1 mg/dL (0.0-0.2) Aspartate Amino Transferase (AST) 15 U/L (15-37) Alanine Aminotransferase (ALT) 22 U/L (14-59) Alkaline Phosphatase 61 U/L (46-116) Total Protein 7.6 g/dL (6.4-8.2) Albumin 3.7 g/dL (3.4-5.0) Lipase 87 U/L (73-393) Urine Collection Type Void Urine Color Yellow Urine Clarity Clear Urine pH 5.5 Urine Specific [place] >=1.030 Urine Protein 30 mg/dL (NEG-TRACE) Urine Glucose (UA) Negative mg/dL (NEG) Urine Ketones (Stick) Negative mg/dL (NEG) Urine Blood Moderate (NEG) Urine Nitrite Positive (NEG) Urine Bilirubin Negative (NEG) Urine Urobilinogen Dipstick 0.2 mg/dL (0.2 mg/dL) Urine Leukocyte Esterase Trace (NEG) Urine RBC 3-5 /HPF (0-2) Urine WBC >40 /HPF (0-4) Urine Squamous Epithelial Cells Many /LPF Urine Bacteria Many /HPF (0-FEW) Urine Mucus Mod /LPF POC Urine HCG, Qualitative Hcg negative (Negative) Laboratory Tests 02/06/18 06:43 Laboratory Tests 02/06/18 06:43 EKG EKG [] Radiology/Procedures Radiology/Procedures Abdomen findings: The liver is mildly enlarged measuring 19.5 cm. The gallbladder, spleen, pancreas, and adrenal glands are unremarkable. Punctate nonobstructive left renal calculi. Subcentimeter hypoattenuating right renal lesions are too small to characterize but statistically likely represent simple renal cysts. No hydronephrosis. There is no significant mesenteric or retroperitoneal adenopathy identified. There is no evidence of free intraperitoneal fluid or pneumoperitoneum. Portions of the ascending and transverse colon are relatively decompressed which limits evaluation for wall thickening. Visualized portions of the bowel are otherwise grossly unremarkable. Normal appendix. Pelvis findings: The bladder is underdistended limiting evaluation. There is no significant pelvic ascites. No significant iliac or inguinal adenopathy is identified. No acute osseous abnormality. IMPRESSION: 1. Portions of the ascending and transverse colon are relatively decompressed which limits evaluation for wall thickening. Colitis is difficult to exclude in these regions. 2. No other evidence of acute intra-abdominal or intrapelvic process. 3. Punctate nonobstructive left renal calculi. No obstructive uropathy. 4. Mild hepatomegaly. Course & Med Decision Making Course & Med Decision Making Pertinent Labs and Imaging studies reviewed. (See chart for details) Patient is seen and examined immediately on arrival. Medications for symptom relief. Standard abdominal pain workup. 09:00: All results are reviewed and discussed with the patient. There are no acute findings on the CT scan. The urinalysis is positive for pyuria with many bacteria but no nitrites. There are also many squamous epithelial cells. Uncertain if this represents contamination or UTI. The patient is asymptomatic. We'll place a short course of Bactrim and send urine culture. She is currently feeling improved and her symptoms are completely resolved following IV Pepcid and GI cocktail. Further discussion with the patient does reveal that she takes several medications for reflux at baseline. She is discharged home this morning. She is placed on Bactrim twice a day for 5 days. She is advised to take her baseline per also twice a day over the next 5 days and then return to her normal regimen. Patient will follow up with her primary care doctor or return to this ER for any new or worsening symptoms. Jodi Disclaimer Jodi Disclaimer This electronic medical record was generated, in whole or in part, using a voice recognition dictation system. Departure Departure Referrals: UNKNOWN PCP NAME (PCP) Scripts Sulfamethoxazole/Trimethoprim (BACTRIM DS TABLET) 1 Each Tablet 1 TAB PO BID, #10 TAB Prov: BRYCE BHATT DO 02/06/18 Ranitidine Hcl (RANITIDINE HCL) 150 Mg Tablet 1 TAB PO BID, #60 TAB 1 Refill Prov: BRYCE BHATT DO 02/06/18 BRYCE BHATT DO Feb 06, 2018 06:43
[2018-02-06] MEDS ORDERED: FAMOTIDINE 20 MG/2 ML VIAL IVP ONE (07:00)
[2018-02-06] MEDS ORDERED: fentaNYL PF VIAL 100 MCG/2 ML VIAL IV ONE (07:00)
[2018-02-06] MEDS ORDERED: ONDANSETRON PF 4 MG/2 ML VIAL. IV ONE (07:00)
[2018-02-06 07:03] LABS: CALCIUM 9.6 mg/dL (8.5-10.1); GFR 75.5; POTASSIUM 3.8 mmol/L (3.5-5.1)
[2018-02-06 07:08] LABS: ALBUMIN 3.7 g/dL (3.4-5.0); DIRECT BILIRUBIN 0.1 mg/dL (0.0-0.2); TOTAL BILIRUBIN 0.2 mg/dL (0.2-1.0); TOTAL PROTEIN 7.6 g/dL (6.4-8.2)
[2018-02-06 07:09] LABS: BASO # 0.1 x10^3/uL (0.0-0.2); BASO % 1 % (0-3); EOS # 0.1 x10^3/uL (0.0-0.7); EOS % 1 % (0-3); HEMATOCRIT 35.5 % (36.0-47.0); LYMPH # 4.5 x10^3/uL (1.0-4.8); LYMPH % 43 % (24-48); MEAN CORPUSCULAR HEMOGLOBIN 29 pg (25-35); MEAN CORPUSCULAR HGB CONC 34 g/dL (31-37); MEAN CORPUSCULAR VOLUME 87 fL (79-100); MONO # 0.6 x10^3/uL (0.0-1.1); MONO % 6 % (0-9); NEUT # 5.3 x10^3uL (1.8-7.7); NEUT % 50 % (31-73); PLATELET COUNT 337 x10^3/uL (140-400); RED CELL DISTRIBUTION WIDTH 15.4 % (11.5-14.5); WHITE BLOOD COUNT 10.6 x10^3/uL (4.0-11.0)
[2018-02-06] MEDS ORDERED: IV NORMAL SALINE 1000ML BAG 1,000 ML IV ONE (07:15)
[2018-02-06] MEDS ORDERED: CONTRAST GIVEN. MC PRN (07:30)
[2018-02-06] MEDS ORDERED: IOHEXOL 300 MG/ML 100ML VIAL. IV ONE (07:30)
[2018-02-06 07:41] LABS: BILIRUBIN,URINE NEGATIVE (NEG); CLARITY,URINE CLEAR; COLOR,URINE YELLOW; NITRITE,URINE POSITIVE (NEG); PH,URINE 5.5; PROTEIN,URINE 30 mg/dL (NEG-TRACE); UROBILINOGEN,URINE 0.2 mg/dL (0.2 mg/dL)
[2018-02-06 07:54] LABS: BACTERIA,URINE MANY /HPF (0-FEW); SQUAMOUS EPITHELIAL CELL,UR MANY /LPF; WBC,URINE >40 /HPF (0-4)
--- NOTE | 2018-02-06 07:59 | RAD ---
CT abdomen and pelvis with contrast Clinical Indication: Upper abdominal pain, nausea COMPARISON: CT abdomen and pelvis dated 09/17/2016 TECHNIQUE: Multiple contiguous axial images were obtained throughout the abdomen and pelvis with the use of IV contrast. Axial images were reformatted into coronal and sagittal planes. 75 mL Omnipaque 300 was administered. Abdomen findings: The liver is mildly enlarged measuring 19.5 cm. The gallbladder, spleen, pancreas, and adrenal glands are unremarkable. Punctate nonobstructive left renal calculi. Subcentimeter hypoattenuating right renal lesions are too small to characterize but statistically likely represent simple renal cysts. No hydronephrosis. There is no significant mesenteric or retroperitoneal adenopathy identified. There is no evidence of free intraperitoneal fluid or pneumoperitoneum. Portions of the ascending and transverse colon are relatively decompressed which limits evaluation for wall thickening. Visualized portions of the bowel are otherwise grossly unremarkable. Normal appendix. Pelvis findings: The bladder is underdistended limiting evaluation. There is no significant pelvic ascites. No significant iliac or inguinal adenopathy is identified. No acute osseous abnormality. IMPRESSION: 1. Portions of the ascending and transverse colon are relatively decompressed which limits evaluation for wall thickening. Colitis is difficult to exclude in these regions. 2. No other evidence of acute intra-abdominal or intrapelvic process. 3. Punctate nonobstructive left renal calculi. No obstructive uropathy. 4. Mild hepatomegaly. PQRS Compliance Statement: One or more of the following individualized dose reduction techniques were utilized for this examination: 1. Automated exposure control 2. Adjustment of the mA and/or kV according to patient size 3. Use of iterative reconstruction technique Electronically signed by: Marky Mendez MD (02/06/2018 7:55 AM) [facility]
[2018-02-06 08:30] VITALS: BP 103/60
[2018-02-06] MEDS ORDERED: LIDO:MAALOX 1:1 20 ML SINGLE DOSE. PO ONE (08:45)
[2018-02-06] MEDS ORDERED: RANI150T2 PO (08:58)
[2018-02-06] MEDS ORDERED: SULF1TAB24 PO (08:58)
== END 2018-02-06 09:07 | disposition home or self-care (01) ==
LOC: ER 06:29
DX: N39.0 Urinary tract infection, site not specified (principal); N20.0 Calculus of kidney; R16.0 Hepatomegaly, not elsewhere classified; J44.9 Chronic obstructive pulmonary disease, unspecified; K21.9 Gastro-esophageal reflux disease without esophagitis; Z86.73 Personal history of transient ischemic attack (TIA), and cerebral infarction without residual deficits; Z98.51 Tubal ligation status; Z90.710 Acquired absence of both cervix and uterus; Z88.1 Allergy status to other antibiotic agents; Z88.5 Allergy status to narcotic agent; Z88.8 Allergy status to other drugs, medicaments and biological substances; Z91.040 Latex allergy status
CPT/HCPCS: 36415; 74177; 80048; 80076; 81001; 81025; 83690; 85025; 96374; 96375; 99285; J2405; J3010; J3490; J7030; Q9967

== ENCOUNTER 2018-03-30 15:08 | Emergency (ER) | payer OTHER ==
[~2018-03-30] VITALS: Ht 162.6 cm; Wt 83.5 kg
[~2018-03-30 15:08] MED LIST changes: +HYDR-3164 PO; -HYDR-971 PO; +RANI150T2 PO; +SULF1TAB24 PO
--- NOTE | 2018-03-30 16:13 | PHYS DOC ---
Past Medical History Past Medical History: Anxiety, Asthma, COPD, CVA, Depression, GERD, Seizure, Stroke Additional Past Medical Histor: R SIDE DEFICITS, TBI, INSOMNIA Past Surgical History: Hysterectomy, Tubal ligation, Other Additional Past Surgical Histo: LEFT SHOULDER, CLAVICLE FROM [facility] [place] Alcohol Use: None Drug Use: None Adult General Chief Complaint Chief Complaint: SHORTNESS OF BREATH HPI HPI Patient is a 37 year old female who presents with shortness of breath and not feeling well. This is been present for the past 2-3 days. Denies any chest pain or palpitations. Notes some nausea, no vomiting. Notes some generalized malaise and fatigue. Patient had a seizure while in the waiting room. Patient does have this history of seizure disorder. Has had no recent changes in her antiseizure medicine, but is unable to recall what her seizure medicine is.[] Review of Systems Review of Systems Constitutional: Denies fever or chills [] Eyes: Denies change in visual acuity, redness, or eye pain [] HENT: Denies nasal congestion or sore throat [] Respiratory: See history of present illness[] Cardiovascular: No chest pain or palpitations[] GI: Denies abdominal pain, nausea, vomiting, bloody stools or diarrhea [] : Denies dysuria or hematuria [] Musculoskeletal: Denies back pain or joint pain [] Integument: Denies rash or skin lesions [] Neurologic: Denies headache, focal weakness or sensory changes [] Endocrine: Denies polyuria or polydipsia [] All other systems were reviewed and found to be within normal limits, except as documented in this note. Current Medications Current Medications Current Medications Medications (Trade) Dose Ordered Sig/Natividad Start Time Stop Time Status Last Admin Dose Admin Acetaminophen (Tylenol) 500 mg 1X ONCE 03/30/18 16:45 03/30/18 16:46 DC 03/30/18 16:47 500 MG Ipratropium Moon (Atrovent) 0.5 mg 1X ONCE 03/30/18 16:15 03/30/18 16:16 DC 03/30/18 18:14 0.5 MG Sodium Chloride 500 ml @ 500 mls/hr 1X ONCE 03/30/18 16:15 03/30/18 17:14 DC 03/30/18 16:30 500 MLS/HR Allergies Allergies Allergies Coded Allergies Type Severity Reaction Last Updated Verified amoxicillin Allergy Severe diarrhea 12/03/17 Yes clavulanic acid Allergy Severe diarrhea 12/03/17 Yes Latex, Natural Rubber Allergy Intermediate Rash 08/14/17 Yes bupropion Allergy Intermediate 08/15/17 No morphine Allergy Intermediate 08/15/17 No diphenhydramine Adverse Reaction Intermediate OTHER 08/14/17 Yes Physical Exam Physical Exam Constitutional: Well developed, well nourished, no acute distress, non-toxic appearance. [] HENT: Normocephalic, atraumatic, bilateral external ears normal, oropharynx moist, no oral exudates, nose normal. [] Eyes: PERRLA, EOMI, conjunctiva normal, no discharge. [] Neck: Normal range of motion, no tenderness, supple, no stridor. [] Cardiovascular:Heart rate regular rhythm, no murmur [] Lungs & Thorax: Bilateral breath sounds clear to auscultation [] Abdomen: Bowel sounds normal, soft, no tenderness, no masses, no pulsatile masses. [] Skin: Warm, dry, no erythema, no rash. [] Back: No tenderness, no CVA tenderness. [] Extremities: No tenderness, no cyanosis, no clubbing, ROM intact, no edema. [] Neurologic: Alert and oriented X 3, normal motor function, normal sensory function, no focal deficits noted. [] Psychologic: Affect normal, judgement normal, mood normal. [] Current Patient Data Vital Signs Vital Signs Date Time Temp Pulse Resp B/P (MAP) Pulse Ox O2 Delivery O2 Flow Rate FiO2 03/30/18 18:30 98 18 135/69 (91) 99 Room Air 03/30/18 15:25 98.7 98.7 Lab Values Laboratory Tests Test 03/30/18 15:40 03/30/18 16:30 White Blood Count 10.0 x10^3/uL (4.0-11.0) Red Blood Count 3.95 x10^6/uL (3.50-5.40) Hemoglobin 11.7 g/dL (12.0-15.5) L Hematocrit 34.1 % (36.0-47.0) L Mean Corpuscular Volume 86 fL (79-100) Mean Corpuscular Hemoglobin 30 pg (25-35) Mean Corpuscular Hemoglobin Concent 34 g/dL (31-37) Red Cell Distribution Width 14.3 % (11.5-14.5) Platelet Count 341 x10^3/uL (140-400) Neutrophils (%) (Auto) 55 % (31-73) Lymphocytes (%) (Auto) 40 % (24-48) Monocytes (%) (Auto) 4 % (0-9) Eosinophils (%) (Auto) 1 % (0-3) Basophils (%) (Auto) 1 % (0-3) Neutrophils # (Auto) 5.5 x10^3uL (1.8-7.7) Lymphocytes # (Auto) 4.0 x10^3/uL (1.0-4.8) Monocytes # (Auto) 0.4 x10^3/uL (0.0-1.1) Eosinophils # (Auto) 0.1 x10^3/uL (0.0-0.7) Basophils # (Auto) 0.0 x10^3/uL (0.0-0.2) D-Dimer (Ольга) 0.43 ug/mlFEU (0.00-0.50) Sodium Level 138 mmol/L (136-145) Potassium Level 3.9 mmol/L (3.5-5.1) Chloride Level 102 mmol/L (98-107) Carbon Dioxide Level 25 mmol/L (21-32) Anion Gap 11 (6-14) Blood Urea Nitrogen 12 mg/dL (7-20) Creatinine 0.9 mg/dL (0.6-1.0) Estimated GFR (Cockcroft-Gault) 85.2 BUN/Creatinine Ratio 13 (6-20) Glucose Level 86 mg/dL (70-99) Calcium Level 9.4 mg/dL (8.5-10.1) Total Bilirubin 0.4 mg/dL (0.2-1.0) Aspartate Amino Transferase (AST) 11 U/L (15-37) L Alanine Aminotransferase (ALT) 18 U/L (14-59) Alkaline Phosphatase 63 U/L (46-116) Troponin I Quantitative < 0.017 ng/mL (0.000-0.055) AF-Tfb-I-Type Natriuretic Peptide 9 pg/mL (0-124) Total Protein 7.8 g/dL (6.4-8.2) Albumin 3.8 g/dL (3.4-5.0) Albumin/Globulin Ratio 1.0 (1.0-1.7) Influenza Type A Antigen Negative (NEGATIVE) Influenza Type B Antigen Negative (NEGATIVE) Laboratory Tests 03/30/18 15:40 Laboratory Tests 03/30/18 15:40 EKG EKG EKG shows a sinus rhythm at 94 bpm, normal axis, QTC 425 ms, no ST elevations.[] Radiology/Procedures Radiology/Procedures Chest x-ray showed no acute features[] Course & Med Decision Making Course & Med Decision Making Pertinent Labs and Imaging studies reviewed. (See chart for details) ED course: Patient arrived, was placed in bed, tolerated exam well. Patient was given breathing treatment which did improve her breathing difficulties. After the lab and imaging findings returned, these were discussed with the patient who voiced understanding. All questions were answered. Mental decision making: No evidence of pulmonary embolism, pneumonia, pneumothorax, hypoxia, nor acute coronary syndrome.[] Dragon Disclaimer Dragon Disclaimer This electronic medical record was generated, in whole or in part, using a voice recognition dictation system. Departure Departure Impression: Primary Impression: Acute bronchitis Disposition: 01 HOME, SELF-CARE Condition: GOOD Referrals: JAMILA GARCIA MD (PCP) Follow-up in 2 days Patient Instructions: Acute Bronchitis Additional Instructions: Follow-up with your primary doctor in 2 days. Drink plenty of fluids. Return to the ER if worsening difficulty breathing or any other concerns. Scripts D-Methorphan Hb/Prometh Hcl (PROMETHAZINE-DM SYRUP) 118 Ml Syrup 5 ML PO PRN Q4HRS, #120 ML Prov: LATISHA MORELAND DO 03/30/18 Albuterol Sulfate (VENTOLIN HFA INHALER) 18 Gm Hfa.aer.ad 2 PUFF INH Q4HRS for FOR ASTHMA, #1 INHALER 0 Refills Prov: LATISHA MORELAND DO 03/30/18 Problem Qualifiers Primary Impression: Acute bronchitis Bronchitis organism: unspecified organism Qualified Codes: J20.9 - Acute bronchitis, unspecified LATISHA MORELAND DO Mar 30, 2018 16:13
[2018-03-30] MEDS: IV NORMAL SALINE 1000ML BAG 1,000 ML IV SCH (16:15)
[2018-03-30 16:21] LABS: BASO % 1 % (0-3); EOS # 0.1 x10^3/uL (0.0-0.7); EOS % 1 % (0-3); HEMATOCRIT 34.1 % (36.0-47.0); HEMOGLOBIN 11.7 g/dL (12.0-15.5); LYMPH % 40 % (24-48); MEAN CORPUSCULAR HEMOGLOBIN 30 pg (25-35); MEAN CORPUSCULAR HGB CONC 34 g/dL (31-37); MEAN CORPUSCULAR VOLUME 86 fL (79-100); MONO # 0.4 x10^3/uL (0.0-1.1); MONO % 4 % (0-9); NEUT # 5.5 x10^3uL (1.8-7.7); NEUT % 55 % (31-73); PLATELET COUNT 341 x10^3/uL (140-400); RED BLOOD COUNT 3.95 x10^6/uL (3.50-5.40); RED CELL DISTRIBUTION WIDTH 14.3 % (11.5-14.5)
[2018-03-30] MEDS: IV NORMAL SALINE 500ML BAG 500 ML IV ONE (16:30)
[2018-03-30 16:34] LABS: CALCIUM 9.4 mg/dL (8.5-10.1); CREATININE 0.9 mg/dL (0.6-1.0); GFR 85.2; POTASSIUM 3.9 mmol/L (3.5-5.1)
[2018-03-30 16:40] LABS: ALBUMIN 3.8 g/dL (3.4-5.0); TOTAL BILIRUBIN 0.4 mg/dL (0.2-1.0); TOTAL PROTEIN 7.8 g/dL (6.4-8.2)
[2018-03-30] MEDS: ACETAMINOPHEN 500 MG TABLET PO ONE (16:47)
--- NOTE | 2018-03-30 17:03 | EKG ---
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
[2018-03-30 17:06] LABS: INFLUENZA A PATIENT NEGATIVE (NEGATIVE); INFLUENZA B PATIENT NEGATIVE (NEGATIVE)
--- NOTE | 2018-03-30 17:31 | RAD ---
CHEST PA LATERAL CLINICAL INDICATION: ER PATIENT. SHORTNESS OF AIR, TREMORS, SEIZURES. DYSPNEA X2 DAYS. HX COPD. PRIOR XRAY COMPARISON: 08/14/2017 FINDINGS: Heart is normal in size. Lungs are clear. No pneumothorax or pleural effusion. Status post ORIF of left clavicular fracture. Otherwise, visualized bony thorax is within normal limits. IMPRESSION: No acute pulmonary process. Electronically signed by: Jose Monroe DO (03/30/2018 5:27 PM) [facility]
[2018-03-30] MEDS: IPRATROPIUM BROMIDE 0.5 MG/2.5 ML NEBU. NEB ONE (18:14)
[2018-03-30 19:00] VITALS: BP 135/69
[2018-03-30] MEDS ORDERED: D-ME118S2 PO (19:11)
[2018-03-30] MEDS ORDERED: VENTOLIN HFA18 GM INH (19:11)
--- NOTE | 2018-04-01 17:13 | VNOTE ---
CALL BACK NOTE CALL BACK Microbiology 03/30/18 Blood Culture - Final, Complete Spoke with patient RE: blood culture results. PT states that she is feeling better and has not been running a fever. Pt advised to return to the ER if she develops a fever or begins feeling worse. NATALIA STOREY APRN Apr 01, 2018 17:13
== END 2018-03-30 19:20 | disposition home or self-care (01) ==
LOC: ER 15:08
DX: J20.9 Acute bronchitis, unspecified (principal); J44.9 Chronic obstructive pulmonary disease, unspecified; K21.9 Gastro-esophageal reflux disease without esophagitis; Z86.73 Personal history of transient ischemic attack (TIA), and cerebral infarction without residual deficits; Z88.1 Allergy status to other antibiotic agents; Z88.5 Allergy status to narcotic agent; Z91.041 Radiographic dye allergy status; Z88.8 Allergy status to other drugs, medicaments and biological substances
CPT/HCPCS: 36415; 71046; 80053; 83880; 84484; 85025; 85379; 87040; 87804; 93005; 94640; 99284; J7030; J7040; J7644

== ENCOUNTER 2018-04-22 13:06 | Emergency (ER) | payer OTHER ==
[~2018-04-22] VITALS: Ht 170.2 cm; Wt 83.5 kg
[~2018-04-22 13:06] MED LIST changes: +D-ME118S2 PO; +PHEN-444 PO; +VENL225T PO; +VENTOLIN HFA18 GM INH
[2018-04-22 13:25] VITALS: BP 127/76
[2018-04-22 13:29] LABS: BILIRUBIN,URINE NEGATIVE (NEG); CLARITY,URINE CLEAR; COLOR,URINE ORANGE; NITRITE,URINE POSITIVE (NEG); PH,URINE 7.5
[2018-04-22 13:36] LABS: SQUAMOUS EPITHELIAL CELL,UR MANY /LPF
[2018-04-22 13:37] LABS: BACTERIA,URINE MOD /HPF (0-FEW); RBC,URINE 0 /HPF (0-2); WBC,URINE OCC /HPF (0-4)
[2018-04-22] MEDS ORDERED: IV NORMAL SALINE 1000ML BAG 1,000 ML IV SCH (13:42)
[2018-04-22] MEDS ORDERED: KETOROLAC 30 MG/ML VIAL. IV ONE (13:45)
[2018-04-22] MEDS ORDERED: ONDANSETRON PF 4 MG/2 ML VIAL. IV ONE (13:45)
--- NOTE | 2018-04-22 13:55 | PHYS DOC ---
Past Medical History Past Medical History: Anxiety, Asthma, COPD, CVA, Depression, GERD, Seizure, Stroke Additional Past Medical Histor: R SIDE DEFICITS, TBI, INSOMNIA Past Surgical History: Hysterectomy, Tubal ligation, Other Additional Past Surgical Histo: LEFT SHOULDER, CLAVICLE FROM [facility] [place] Alcohol Use: None Drug Use: None Adult General Chief Complaint Chief Complaint: ABDOMINAL PAIN HPI HPI Patient is a 37-year-old female who presents to the emergency department for evaluation. She states that she has been having abdominal pain in the center/ left upper abdomen for the past week or so. She states that she vomited 3 times in the past 24 hours. She was hospitalized here briefly last week, for a UTI, with a nonobstructive renal stone. She did see urology, who felt that the patient's pain was not related to her non-obstructing renal stone.. The patient states that she went to see her PCP at today, who wheeled her downstairs to the ER at to get some more testing done because she is having continuing abdominal pain and has vomited 3 times in the past 24 hours. The patient is uncertain what other tests were going to be run. The patient states that she waited for a few hours in the ER at , and then came back to this facility. I did review the test results, and imaging results from the patient's recent CT have been reviewed. The patient has had 6 CT scans of her abdomen and pelvis in the past 3 years at this facility, not including scans that she had potentially had another facilities. She has not had any fevers or chills. She is currently taking Levaquin, as well as Pyridium. There are no alleviating or exacerbating factors to her symptoms. She has not had any diarrhea. Review of Systems Review of Systems Constitutional: Denies fever or chills [] Eyes: Denies change in visual acuity, redness, or eye pain [] HENT: Denies nasal congestion or sore throat [] Respiratory: Denies cough or shortness of breath [] Cardiovascular: The patient denies any shortness of breath, chest pain, palpitations, or orthopnea [] GI: No additional information not addressed in HPI [] : Denies dysuria or hematuria. The patient does report some orange urine, secondary to taking Pyridium. [] Musculoskeletal: Denies back pain or joint pain [] Integument: Denies rash or skin lesions [] Neurologic: Denies headache, focal weakness or sensory changes [] Endocrine: Denies polyuria or polydipsia [] All other systems were reviewed and found to be within normal limits, except as documented in this note. Current Medications Current Medications Current Medications Medications (Trade) Dose Ordered Sig/Natividad Start Time Stop Time Status Last Admin Dose Admin Ketorolac Tromethamine (Toradol 30mg Vial) 30 mg 1X ONCE 04/22/18 13:45 04/22/18 13:46 DC 04/22/18 13:52 30 MG Ondansetron HCl (Zofran) 4 mg 1X ONCE 04/22/18 13:45 04/22/18 13:46 DC 04/22/18 13:59 4 MG Sodium Chloride 1,000 ml @ 1,000 mls/hr Q1H 04/22/18 13:42 04/22/18 14:41 04/22/18 13:58 1,000 MLS/HR Allergies Allergies Allergies Coded Allergies Type Severity Reaction Last Updated Verified amoxicillin Allergy Severe diarrhea 12/03/17 Yes clavulanic acid Allergy Severe diarrhea 12/03/17 Yes Latex, Natural Rubber Allergy Intermediate Rash 08/14/17 Yes bupropion Allergy Intermediate 04/17/18 Yes morphine Allergy Intermediate 04/17/18 Yes diphenhydramine Adverse Reaction Intermediate OTHER 08/14/17 Yes Physical Exam Physical Exam PHYSICAL EXAM: CONSTITUTIONAL: Well developed, well nourished HEAD: normocephalic, atraumatic EENT: PERRL, EOMI. Conjunctivae normal color, sclerae non-icteric; moist mucous membranes. NECK: Supple, non-tender; no meningismus. LUNGS: Lungs CTA, breathing even and unlabored. Normal air movement. HEART: Regular rate and rhythm, no murmur CHEST: No deformity; non-tender ABDOMEN: The abdomen is soft, it is very mild tenderness to palpation in the left mid and central abdomen, without focal tenderness otherwise, rebound, or guarding, normal bowel sounds are present, the right lower quadrant is soft and non-tender, no masses or bruits. EXTREM: Normal ROM; no deformity, no calf tenderness. Normal pulses palpable in all extremities. There is no pedal edema. SKIN: No rash; no diaphoresis NEURO: Alert; normal speech and cognition; CN's grossly intact; strength grossly intact without focal deficit. BACK: No CVA TTP. Current Patient Data Vital Signs Vital Signs Date Time Temp Pulse Resp B/P (MAP) Pulse Ox O2 Delivery O2 Flow Rate FiO2 04/22/18 13:25 98.3 102 16 127/76 (93) 98 Room Air 98.3 Lab Values Laboratory Tests Test 04/22/18 13:15 04/22/18 13:47 Urine Collection Type Unknown Urine Color [place] Urine Clarity Clear Urine pH 7.5 Urine Specific [place] 1.025 Urine Protein mg/dL (NEG-TRACE) Urine Glucose (UA) Negative mg/dL (NEG) Urine Ketones (Stick) mg/dL (NEG) Urine Blood Negative (NEG) Urine Nitrite Positive (NEG) Urine Bilirubin Negative (NEG) Urine Urobilinogen Dipstick 1.0 mg/dL (0.2 mg/dL) Urine Leukocyte Esterase Small (NEG) Urine RBC 0 /HPF (0-2) Urine WBC Occ /HPF (0-4) Urine Squamous Epithelial Cells Many /LPF Urine Bacteria Mod /HPF (0-FEW) Urine Mucus Mod /LPF White Blood Count 8.6 x10^3/uL (4.0-11.0) Red Blood Count 3.99 x10^6/uL (3.50-5.40) Hemoglobin 11.5 g/dL (12.0-15.5) L Hematocrit 35.0 % (36.0-47.0) L Mean Corpuscular Volume 88 fL (79-100) Mean Corpuscular Hemoglobin 29 pg (25-35) Mean Corpuscular Hemoglobin Concent 33 g/dL (31-37) Red Cell Distribution Width 14.5 % (11.5-14.5) Platelet Count 328 x10^3/uL (140-400) Neutrophils (%) (Auto) 57 % (31-73) Lymphocytes (%) (Auto) 36 % (24-48) Monocytes (%) (Auto) 5 % (0-9) Eosinophils (%) (Auto) 2 % (0-3) Basophils (%) (Auto) 0 % (0-3) Neutrophils # (Auto) 4.9 x10^3uL (1.8-7.7) Lymphocytes # (Auto) 3.1 x10^3/uL (1.0-4.8) Monocytes # (Auto) 0.4 x10^3/uL (0.0-1.1) Eosinophils # (Auto) 0.2 x10^3/uL (0.0-0.7) Basophils # (Auto) 0.0 x10^3/uL (0.0-0.2) Sodium Level 138 mmol/L (136-145) Potassium Level 4.3 mmol/L (3.5-5.1) Chloride Level 104 mmol/L (98-107) Carbon Dioxide Level 26 mmol/L (21-32) Anion Gap 8 (6-14) Blood Urea Nitrogen 9 mg/dL (7-20) Creatinine 0.9 mg/dL (0.6-1.0) Estimated GFR (Cockcroft-Gault) 85.2 BUN/Creatinine Ratio 10 (6-20) Glucose Level 113 mg/dL (70-99) H Calcium Level 9.1 mg/dL (8.5-10.1) Total Bilirubin 0.3 mg/dL (0.2-1.0) Aspartate Amino Transferase (AST) 21 U/L (15-37) Alanine Aminotransferase (ALT) 26 U/L (14-59) Alkaline Phosphatase 62 U/L (46-116) Total Protein 7.2 g/dL (6.4-8.2) Albumin 3.5 g/dL (3.4-5.0) Albumin/Globulin Ratio 0.9 (1.0-1.7) L Lipase 83 U/L (73-393) Laboratory Tests 04/22/18 13:47 Laboratory Tests 04/22/18 13:47 EKG EKG [] Radiology/Procedures Radiology/Procedures [] Course & Med Decision Making Course & Med Decision Making Pertinent Labs and recent imaging studies reviewed. (See chart for details) [2:35 PM: The patient's condition remains stable. I am uncertain of the etiology of her abdominal pain. She states that this has been an ongoing issue where she has had frequent episodes of abdominal pain. She admits to having multiple CT scans over this past several years at as well. I discussed importance of further outpatient evaluation with gastroenterology, and return precautions. I do believe that the risk of radiation from repeat CT scans outweighs the diagnostic utility at this time. Dragon Disclaimer Dragon Disclaimer This electronic medical record was generated, in whole or in part, using a voice recognition dictation system. Departure Departure Impression: Primary Impression: Abdominal pain Disposition: 01 HOME, SELF-CARE Condition: STABLE Referrals: JAMILA GARCIA MD (PCP) NARGIS PITTMAN MD Patient Instructions: Abdominal Pain Scripts Ondansetron Hcl (ZOFRAN) 4 Mg Tablet 1 TAB PO Q6HRS PRN for NAUSEA/VOMITING, #20 TAB Prov: LARRY BONILLA MD 04/22/18 Dicyclomine Hcl (DICYCLOMINE HCL) 20 Mg Tablet 1 TAB PO QID, #20 TAB Prov: LARRY BONILLA MD 04/22/18 LARRY BONILLA MD Apr 22, 2018 13:55
[2018-04-22 14:00] LABS: BASO % 0 % (0-3); EOS # 0.2 x10^3/uL (0.0-0.7); EOS % 2 % (0-3); HEMOGLOBIN 11.5 g/dL (12.0-15.5); LYMPH # 3.1 x10^3/uL (1.0-4.8); LYMPH % 36 % (24-48); MEAN CORPUSCULAR HEMOGLOBIN 29 pg (25-35); MEAN CORPUSCULAR HGB CONC 33 g/dL (31-37); MEAN CORPUSCULAR VOLUME 88 fL (79-100); MONO # 0.4 x10^3/uL (0.0-1.1); MONO % 5 % (0-9); NEUT # 4.9 x10^3uL (1.8-7.7); NEUT % 57 % (31-73); PLATELET COUNT 328 x10^3/uL (140-400); RED BLOOD COUNT 3.99 x10^6/uL (3.50-5.40); RED CELL DISTRIBUTION WIDTH 14.5 % (11.5-14.5); WHITE BLOOD COUNT 8.6 x10^3/uL (4.0-11.0)
[2018-04-22 14:13] LABS: CALCIUM 9.1 mg/dL (8.5-10.1); CREATININE 0.9 mg/dL (0.6-1.0); GFR 85.2; POTASSIUM 4.3 mmol/L (3.5-5.1)
[2018-04-22 14:19] LABS: ALBUMIN 3.5 g/dL (3.4-5.0); ALBUMIN/GLOBULIN RATIO 0.9 (1.0-1.7); TOTAL BILIRUBIN 0.3 mg/dL (0.2-1.0); TOTAL PROTEIN 7.2 g/dL (6.4-8.2)
[2018-04-22] MEDS ORDERED: DICY20TA3 PO (14:37)
[2018-04-22] MEDS ORDERED: ONDA4TAB7 PO (14:37)
== END 2018-04-22 15:05 | disposition home or self-care (01) ==
LOC: ER 13:06
DX: R10.12 Left upper quadrant pain (principal); R11.10 Vomiting, unspecified; K21.9 Gastro-esophageal reflux disease without esophagitis; J44.9 Chronic obstructive pulmonary disease, unspecified; Z86.73 Personal history of transient ischemic attack (TIA), and cerebral infarction without residual deficits; Z98.51 Tubal ligation status; Z90.710 Acquired absence of both cervix and uterus; Z88.1 Allergy status to other antibiotic agents; Z91.040 Latex allergy status; Z88.5 Allergy status to narcotic agent; Z88.8 Allergy status to other drugs, medicaments and biological substances
CPT/HCPCS: 36415; 80053; 81001; 83690; 85025; 96361; 96374; 96375; 99283; J1885; J2405; J7030

== ENCOUNTER 2018-06-08 14:19 | Emergency (ER) | payer OTHER ==
[~2018-06-08] VITALS: Ht 162.6 cm; Wt 83.5 kg
[~2018-06-08 14:19] MED LIST changes: +DICY20TA3 PO; +ONDA4TAB7 PO
[2018-06-08] MEDS ORDERED: IV NORMAL SALINE 1000ML BAG 1,000 ML IV ONE (15:15)
[2018-06-08 15:21] LABS: BILIRUBIN,URINE NEGATIVE (NEG); CLARITY,URINE CLEAR; COLOR,URINE AMBER; NITRITE,URINE NEGATIVE (NEG); PROTEIN,URINE NEGATIVE (NEG-TRACE); UROBILINOGEN,URINE 0.2 mg/dL (0.2 mg/dL)
[2018-06-08 15:28] LABS: BARBITURATES NEG (NEG); BENZODIAZEPINES POS (NEG); CANNABINOIDS NEG (NEG); COCAINE NEG (NEG); METHADONE NEG (NEG); OPIATES NEG (NEG); PHENCYCLIDINE NEG (NEG)
--- NOTE | 2018-06-08 15:29 | EKG ---
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
[2018-06-08 15:40] LABS: AMPHETAMINE/METHAMPHETAMINE NEG (NEG)
[2018-06-08 15:52] LABS: BACTERIA,URINE FEW /HPF (0-FEW); RBC,URINE 0 /HPF (0-2); SQUAMOUS EPITHELIAL CELL,UR OCC /LPF; WBC,URINE OCC /HPF (0-4)
[2018-06-08 15:53] LABS: BASO % 1 % (0-3); EOS # 0.1 x10^3/uL (0.0-0.7); EOS % 1 % (0-3); HEMATOCRIT 35.9 % (36.0-47.0); HEMOGLOBIN 11.9 g/dL (12.0-15.5); LYMPH # 3.7 x10^3/uL (1.0-4.8); LYMPH % 44 % (24-48); MEAN CORPUSCULAR HEMOGLOBIN 29 pg (25-35); MEAN CORPUSCULAR HGB CONC 33 g/dL (31-37); MEAN CORPUSCULAR VOLUME 88 fL (79-100); MONO # 0.5 x10^3/uL (0.0-1.1); MONO % 6 % (0-9); NEUT % 48 % (31-73); PLATELET COUNT 324 x10^3/uL (140-400); RED BLOOD COUNT 4.08 x10^6/uL (3.50-5.40); RED CELL DISTRIBUTION WIDTH 14.5 % (11.5-14.5); WHITE BLOOD COUNT 8.4 x10^3/uL (4.0-11.0)
[2018-06-08 15:55] LABS: CALCIUM 9.8 mg/dL (8.5-10.1); GFR 75.5; POTASSIUM 4.2 mmol/L (3.5-5.1)
--- NOTE | 2018-06-08 16:02 | RAD ---
EXAM: PA and lateral views of the chest DATE: 06/08/2018 12:00 AM INDICATION: SHORTNESS OF BREATH, dizziness and lightheadedness. COMPARISON: 03/30/2018, 08/14/2017 FINDINGS: The heart is not enlarged. Mediastinal and hilar contours are normal. No focal parenchymal airspace opacity. No pleural effusion or pneumothorax. Screw plate fixation of the left clavicle is again seen. IMPRESSION: 1. No radiographic evidence for acute cardiopulmonary process. Electronically signed by: Mal Rowe MD (06/08/2018 3:58 PM) [id number]
[2018-06-08 16:03] LABS: ALBUMIN/GLOBULIN RATIO 1.1 (1.0-1.7); TOTAL BILIRUBIN 0.2 mg/dL (0.2-1.0); TOTAL PROTEIN 7.6 g/dL (6.4-8.2)
[2018-06-08 16:34] LABS: INFLUENZA A PATIENT NEGATIVE (NEGATIVE); INFLUENZA B PATIENT NEGATIVE (NEGATIVE)
--- NOTE | 2018-06-08 16:40 | PHYS DOC ---
Past Medical History Past Medical History: Anxiety, Asthma, COPD, CVA, Depression, GERD, Seizure, Stroke Additional Past Medical Histor: R SIDE DEFICITS, TBI, INSOMNIA Past Surgical History: Hysterectomy, Tubal ligation, Other Additional Past Surgical Histo: LEFT SHOULDER, CLAVICLE FROM [facility] [place] Alcohol Use: None Drug Use: None Adult General Chief Complaint Chief Complaint: DIZZY/LIGHT HEADED HPI HPI 37-year-old female presents to ER via POV with complaints of 3 day history of intermittent dizziness, fatigue, chills, and generalized aches. Patient reports she has had a headache and has felt feverish denies elevated temperature. Patient reports she has had intermittent nausea denies vomiting or diarrhea episodes. Patient denies any chest pain but at times states she has felt short of air. On initial exam patient is anxious during discussion on symptoms. Patient reports history of anxiety and depression. Patient denies being around family with similar flulike illness. 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 Patient denies recent travel. Patient denies urinary symptoms. She reports she has had decreased appetite and less fluid intake over the past few days. She recent falls or injury. Patient has had hysterectomy. Patient smokes less than pack per day of cigarettes. She denies any alcohol or illicit drug use. Review of Systems Review of Systems Constitutional: Reports chills with generalized fatigue- denies fever Eyes: Denies change in visual acuity, redness, or eye pain [] HENT: Denies nasal congestion or sore throat [] Respiratory: Denies cough. She reports SOA intermittently Cardiovascular: Denies CP/palpitations GI: Denies vomiting, bloody stools or diarrhea. Reports diffuse abd pain- upper and lower. Reports intermittent nausea : Denies dysuria or hematuria [] Musculoskeletal: Reports generalized body aches Integument: Denies rash, swelling or skin lesions [] Neurologic: Denies focal weakness or sensory changes. Reports intermittent dizziness which is worse with position changes Psych: Reports anxiety All other systems were reviewed and found to be within normal limits, except as documented in this note. Current Medications Current Medications Current Medications Medications (Trade) Dose Ordered Sig/[facility] Start Time Stop Time Status Last Admin Dose Admin Sodium Chloride 1,000 ml @ 1,000 mls/hr 1X ONCE 06/08/18 15:15 06/08/18 16:14 DC 06/08/18 15:52 1,000 MLS/HR Allergies Allergies Allergies Coded Allergies Type Severity Reaction Last Updated Verified amoxicillin Allergy Severe diarrhea 12/03/17 Yes clavulanic acid Allergy Severe diarrhea 12/03/17 Yes Latex, Natural Rubber Allergy Intermediate Rash 08/14/17 Yes bupropion Allergy Intermediate 04/17/18 Yes morphine Allergy Intermediate 04/17/18 Yes diphenhydramine Adverse Reaction Intermediate OTHER 08/14/17 Yes Physical Exam Physical Exam Constitutional: Well developed, well nourished, no acute distress, non-toxic appearance. Clear speech HENT: Normocephalic, atraumatic, bilateral ears normal, mucous membranes pink/ dry, no oral exudates, nose normal. [] Eyes: 3mm PERRLA, EOMI-no eye pain with movements, no nystagmus, conjunctiva normal, no discharge. [] Neck: Normal range of motion, no tenderness, supple, no stridor/gross adenopathy Cardiovascular: Initial HR tachycardic at 105 when this provider entered room- pt was breathing rapidly and was anxious. Redirection on her breathing/anxiety provided and following with slowed breathing pattern and reassurance pt's HR 80- 90's during exam. Heart rhythm regular, no murmur [] Lungs & Thorax: Bilateral breath sounds clear to auscultation. Resp. equal/ nonlabored Abdomen: Bowel sounds normal, soft, diffuse tenderness across upper abd- no focal area, no rebound tenderness, no masses, no pulsatile masses. [] Skin: Warm, dry, no erythema, no rash. [] Back: No tenderness, no CVA tenderness. [] Extremities: No tenderness, no cyanosis, no clubbing, ROM intact, no edema. [] Neurologic: Alert and oriented X 3, normal motor function, normal sensory function, no focal deficits noted. [] Psychologic: Affect normal, judgement normal, anxious initially and following redirection and reassurance pt appeared less anxious during exam- she reports hx of anxiety denies SI Current Patient Data Vital Signs Vital Signs Date Time Temp Pulse Resp B/P (MAP) Pulse Ox O2 Delivery O2 Flow Rate FiO2 06/08/18 14:30 98.7 101 18 136/78 (97) 100 Room Air 98.7 Lab Values Laboratory Tests Test 06/08/18 14:50 06/08/18 15:35 Urine Color Alicia Urine Clarity Clear Urine pH 5.0 Urine Specific [place] >=1.030 Urine Protein Negative mg/dL (NEG-TRACE) Urine Glucose (UA) Negative mg/dL (NEG) Urine Ketones (Stick) Trace mg/dL (NEG) Urine Blood Negative (NEG) Urine Nitrite Negative (NEG) Urine Bilirubin Negative (NEG) Urine Urobilinogen Dipstick 0.2 mg/dL (0.2 mg/dL) Urine Leukocyte Esterase Negative (NEG) Urine RBC 0 /HPF (0-2) Urine WBC Occ /HPF (0-4) Urine Squamous Epithelial Cells Occ /LPF Urine Bacteria Few /HPF (0-FEW) Urine Mucus Mod /LPF Urine Opiates Screen Neg (NEG) Urine Methadone Screen Neg (NEG) Urine Barbiturates Neg (NEG) Urine Phencyclidine Screen Neg (NEG) Urine Amphetamine/Methamphetamine Neg (NEG) Urine Benzodiazepines Screen Pos (NEG) Urine Cocaine Screen Neg (NEG) Urine Cannabinoids Screen Neg (NEG) Urine Ethyl Alcohol Neg (NEG) White Blood Count 8.4 x10^3/uL (4.0-11.0) Red Blood Count 4.08 x10^6/uL (3.50-5.40) Hemoglobin 11.9 g/dL (12.0-15.5) L Hematocrit 35.9 % (36.0-47.0) L Mean Corpuscular Volume 88 fL (79-100) Mean Corpuscular Hemoglobin 29 pg (25-35) Mean Corpuscular Hemoglobin Concent 33 g/dL (31-37) Red Cell Distribution Width 14.5 % (11.5-14.5) Platelet Count 324 x10^3/uL (140-400) Neutrophils (%) (Auto) 48 % (31-73) Lymphocytes (%) (Auto) 44 % (24-48) Monocytes (%) (Auto) 6 % (0-9) Eosinophils (%) (Auto) 1 % (0-3) Basophils (%) (Auto) 1 % (0-3) Neutrophils # (Auto) 4.0 x10^3uL (1.8-7.7) Lymphocytes # (Auto) 3.7 x10^3/uL (1.0-4.8) Monocytes # (Auto) 0.5 x10^3/uL (0.0-1.1) Eosinophils # (Auto) 0.1 x10^3/uL (0.0-0.7) Basophils # (Auto) 0.0 x10^3/uL (0.0-0.2) Sodium Level 139 mmol/L (136-145) Potassium Level 4.2 mmol/L (3.5-5.1) Chloride Level 101 mmol/L (98-107) Carbon Dioxide Level 27 mmol/L (21-32) Anion Gap 11 (6-14) Blood Urea Nitrogen 10 mg/dL (7-20) Creatinine 1.0 mg/dL (0.6-1.0) Estimated GFR (Cockcroft-Gault) 75.5 BUN/Creatinine Ratio 10 (6-20) Glucose Level 84 mg/dL (70-99) Calcium Level 9.8 mg/dL (8.5-10.1) Magnesium Level 2.0 mg/dL (1.8-2.4) Total Bilirubin 0.2 mg/dL (0.2-1.0) Aspartate Amino Transferase (AST) 12 U/L (15-37) L Alanine Aminotransferase (ALT) 18 U/L (14-59) Alkaline Phosphatase 70 U/L (46-116) Troponin I Quantitative < 0.017 ng/mL (0.000-0.055) Total Protein 7.6 g/dL (6.4-8.2) Albumin 4.0 g/dL (3.4-5.0) Albumin/Globulin Ratio 1.1 (1.0-1.7) Laboratory Tests 06/08/18 15:35 Laboratory Tests 06/08/18 15:35 EKG EKG EKG obtained 06/08/18 at [address] Fernandez Sinus rhythm Rate 98 No STEMI Radiology/Procedures Radiology/Procedures [PROCEDURE: CHEST PA & LATERAL EXAM: PA and lateral views of the chest DATE: 06/08/2018 12:00 AM INDICATION: SHORTNESS OF BREATH, dizziness and lightheadedness. COMPARISON: 03/30/2018, 08/14/2017 FINDINGS: The heart is not enlarged. Mediastinal and hilar contours are normal. No focal parenchymal airspace opacity. No pleural effusion or pneumothorax. Screw plate fixation of the left clavicle is again seen. IMPRESSION: 1. No radiographic evidence for acute cardiopulmonary process. Electronically signed by: Mal Key MD (06/08/2018 3:58 PM) [id number] DICTATED and SIGNED BY: MAL KEY MD DATE: 06/08/18 6621 Course & Med Decision Making Course & Med Decision Making Pertinent Labs and Imaging studies reviewed. (See chart for details) [] Dragon Disclaimer Dragon Disclaimer This electronic medical record was generated, in whole or in part, using a voice recognition dictation system. Departure Departure Impression: Primary Impression: Dizziness Additional Impressions: Dehydration Flu-like symptoms Disposition: HOME, SELF-CARE Condition: STABLE Referrals: JAMILA GARCIA MD (PCP) Patient Instructions: Dehydration, Adult, Dizziness, Viral Syndrome Additional Instructions: Increase fluids and eat well balanced meals. Avoid smoking. If symptoms persist follow-up with primary doctor for re-evaluation and further care. Tylenol and ibuprofen as directed on container as needed for pain/fever. Problem Qualifiers ERNIE CONWAY APRN Jun 08, 2018 16:40
[2018-06-08 17:30] VITALS: BP 148/86
== END 2018-06-08 17:54 | disposition home or self-care (01) ==
LOC: ER 14:19
DX: E86.0 Dehydration (principal); R42 Dizziness and giddiness; R10.84 Generalized abdominal pain; R11.0 Nausea; R51 Headache; F41.9 Anxiety disorder, unspecified; J44.9 Chronic obstructive pulmonary disease, unspecified; F32.9 Major depressive disorder, single episode, unspecified; K21.9 Gastro-esophageal reflux disease without esophagitis; Z86.73 Personal history of transient ischemic attack (TIA), and cerebral infarction without residual deficits; Z90.710 Acquired absence of both cervix and uterus; Z98.51 Tubal ligation status; Z88.1 Allergy status to other antibiotic agents; Z91.040 Latex allergy status; Z88.5 Allergy status to narcotic agent; Z88.8 Allergy status to other drugs, medicaments and biological substances
CPT/HCPCS: 36415; 71046; 80053; 80307; 81001; 83735; 84484; 85025; 87804; 93005; 96360; 96361; 99284; J7030

== ENCOUNTER 2018-08-13 23:13 | Emergency (ER) | payer OTHER ==
[~2018-08-13] VITALS: Ht 162.6 cm; Wt 86.2 kg
[2018-08-13 23:20] VITALS: BP 126/81
[2018-08-13] MEDS ORDERED: CYCL10TA2 PO (23:57)
[2018-08-13] MEDS ORDERED: HYDR-3164 PO (23:57)
--- NOTE | 2018-08-13 23:57 | PHYS DOC ---
Past Medical History Past Medical History: Anxiety, Asthma, COPD, CVA, Depression, GERD, Seizure, Stroke Additional Past Medical Histor: R SIDE DEFICITS, TBI, INSOMNIA Past Surgical History: Hysterectomy, Tubal ligation, Other Additional Past Surgical Histo: LEFT SHOULDER, [place] [facility] [place] Alcohol Use: None Drug Use: None Adult General Chief Complaint Chief Complaint: MUSCLE SPASM/CRAMP HPI HPI Patient is a 38 year old F who was moving and carrying a heavy box down some steps and missed a step and pulled something in R side of tspine. She denies bowel or bladder dysfunction or leg numbness. Pt able to stand for exam and has focal pain over R back. Review of Systems Review of Systems Constitutional: Denies fever or chills [] Eyes: Denies change in visual acuity, redness, or eye pain [] HENT: Denies nasal congestion or sore throat [] Respiratory: Denies cough or shortness of breath [] Cardiovascular: No additional information not addressed in HPI [] GI: Denies abdominal pain, nausea, vomiting, bloody stools or diarrhea [] : Denies dysuria or hematuria [] Musculoskeletal: Reports R sided mid back pain. Integument: Denies rash or skin lesions [] Neurologic: Denies headache, focal weakness or sensory changes [] All other systems were reviewed and found to be within normal limits, except as documented in this note. Current Medications Current Medications Current Medications Medications (Trade) Dose Ordered Sig/[facility] Start Time Stop Time Status Last Admin Dose Admin Acetaminophen/ Hydrocodone Bitart (Lortab 5/325) 1 tab 1X ONCE 08/14/18 00:15 08/14/18 00:16 DC 08/14/18 00:16 1 TAB Cyclobenzaprine HCl (Flexeril) 10 mg 1X ONCE 08/14/18 00:15 08/14/18 00:16 DC 08/14/18 00:16 10 MG Allergies Allergies Allergies Coded Allergies Type Severity Reaction Last Updated Verified amoxicillin Allergy Severe diarrhea 12/03/17 Yes clavulanic acid Allergy Severe diarrhea 12/03/17 Yes Latex, Natural Rubber Allergy Intermediate Rash 08/14/17 Yes bupropion Allergy Intermediate 04/17/18 Yes morphine Allergy Intermediate 04/17/18 Yes diphenhydramine Adverse Reaction Intermediate OTHER 08/14/17 Yes Physical Exam Physical Exam Constitutional: Well developed, well nourished, no acute distress, non-toxic appearance. [] HENT: Normocephalic, atraumatic, bilateral external ears normal, oropharynx moist, no oral exudates, nose normal. [] Eyes: PERRLA, EOMI, conjunctiva normal, no discharge. [] Neck: Normal range of motion, no tenderness, supple, no stridor. [] Cardiovascular:Heart rate regular rhythm, no murmur [] Lungs & Thorax: Bilateral breath sounds clear to auscultation [] Abdomen: Bowel sounds normal, soft, no tenderness, no masses, no pulsatile masses. [] Skin: Warm, dry, no erythema, no rash. [] Back: R sided t spine perispinous pain with palpation. Mild spasm. Extremities: No tenderness, no cyanosis, no clubbing, ROM intact, no edema. [] Neurologic: Alert and oriented X 3, normal motor function, normal sensory function, no focal deficits noted. [] Psychologic: Affect normal, judgement normal, mood normal. [] Current Patient Data Vital Signs Vital Signs Date Time Temp Pulse Resp B/P (MAP) Pulse Ox O2 Delivery O2 Flow Rate FiO2 08/14/18 00:16 16 98 Room Air 08/13/18 23:20 98.1 87 126/81 (96) 98.1 EKG EKG [] Radiology/Procedures Radiology/Procedures [] Course & Med Decision Making Course & Med Decision Making Pertinent Labs and Imaging studies reviewed. (See chart for details) Ice/heat therapy, rest, no lifting greater then 10 lbs x 1 week and close f/u w [facility] PCP Dragon Disclaimer Dragon Disclaimer This electronic medical record was generated, in whole or in part, using a voice recognition dictation system. Departure Departure Impression: Primary Impression: Strain of thoracic back region Disposition: HOME, SELF-CARE Condition: IMPROVED Referrals: JAMILA GARCIA MD (PCP) Patient Instructions: Thoracic Strain, [id number] Additional Instructions: Heating pad, rest, no lifting greater then 10 lbs x 1 week. Scripts Hydrocodone/Apap 5-325 (NORCO 5-325 TABLET) 1 Each Tablet 1-2 TAB PO Q4-6HRS PRN for PAIN, #12 TAB Prov: FERNANDO OROZCO 08/13/18 Cyclobenzaprine Hcl (CYCLOBENZAPRINE HCL) 10 Mg Tablet 1 TAB PO TID PRN for MUSCLE SPASMS, #12 TAB Prov: FERNANDO OROZCO 08/13/18 FERNANDO OROZCO Aug 13, 2018 23:57
[2018-08-14] MEDS ORDERED: HYDROcodone/APAP 5/325MG 1 TAB TABLET PO ONE (00:15)
[2018-08-14] MEDS ORDERED: CYCLOBENZAPRINE 10 MG TABLET. PO ONE (00:15)
== END 2018-08-14 00:23 | disposition home or self-care (01) ==
LOC: ER 08-14 00:11
DX: S29.012A Strain of muscle and tendon of back wall of thorax, initial encounter (principal); J44.9 Chronic obstructive pulmonary disease, unspecified; K21.9 Gastro-esophageal reflux disease without esophagitis; Z86.73 Personal history of transient ischemic attack (TIA), and cerebral infarction without residual deficits; Z98.51 Tubal ligation status; Z90.710 Acquired absence of both cervix and uterus; Z88.1 Allergy status to other antibiotic agents; Z88.5 Allergy status to narcotic agent; Z88.8 Allergy status to other drugs, medicaments and biological substances; Z91.040 Latex allergy status; X50.0XXA Overexertion from strenuous movement or load, initial encounter; Y93.89 Activity, other specified; Y92.89 Other specified places as the place of occurrence of the external cause; Y99.8 Other external cause status
CPT/HCPCS: 99284

== ENCOUNTER 2018-08-23 19:42 | Emergency (ER) | payer OTHER ==
[~2018-08-23] VITALS: Ht 162.6 cm; Wt 87.5 kg
[~2018-08-23 19:42] MED LIST changes: +CYCL10TA2 PO
[2018-08-23 19:50] VITALS: BP 136/82
--- NOTE | 2018-08-23 20:47 | PHYS DOC ---
Past Medical History Past Medical History: Anxiety, Asthma, COPD, CVA, Depression, GERD, Seizure, Stroke Additional Past Medical Histor: R SIDE DEFICITS, TBI, INSOMNIA Past Surgical History: Hysterectomy, Tubal ligation, Other Additional Past Surgical Histo: LEFT SHOULDER, [place] [facility] [place] Alcohol Use: None Drug Use: None Adult General Chief Complaint Chief Complaint: HEADACHE HPI HPI Patient is a 38-year-old female who presents with complaint of left-sided posterior temporal headache that started at about 3:00 this morning. Patient states that it woke her from sleep. She describes it as feeling like a knife is being driven into her skull. She states that the sharp pains only last for maybe a minute or 2 and then it goes to a dull throb. She states that the pain has been present pretty much throughout the entire day and currently rates the headache at about a 5 out of 10 but states that when the stabbing pain comes it's greater than a 10 out of 10. Patient denies any photophobia or phonophobia and denies any nausea or vomiting. She also denies any fever or neck pain. Patient states that she is not aware of anything that worsens or improves the pain. Review of Systems Review of Systems Constitutional: Denies fever or chills [] Eyes: Denies change in visual acuity, redness, or eye pain [] Respiratory: Denies cough or shortness of breath [] Cardiovascular: No additional information not addressed in HPI [] GI: Denies abdominal pain, nausea, vomiting or diarrhea [] Integument: Denies rash or skin lesions [] Neurologic: Complains of headache without focal weakness or sensory changes [] All other systems were reviewed and found to be within normal limits, except as documented in this note. Current Medications Current Medications Current Medications Medications (Trade) Dose Ordered Sig/[facility] Start Time Stop Time Status Last Admin Dose Admin Metoclopramide HCl (Reglan Vial) 10 mg 1X ONCE 08/23/18 21:15 08/23/18 21:16 DC 08/23/18 21:04 10 MG Sumatriptan Succinate (Imitrex) 6 mg 1X ONCE 08/23/18 21:15 08/23/18 21:16 DC 08/23/18 21:03 6 MG Allergies Allergies Allergies Coded Allergies Type Severity Reaction Last Updated Verified amoxicillin Allergy Severe diarrhea 12/03/17 Yes clavulanic acid Allergy Severe diarrhea 12/03/17 Yes Latex, Natural Rubber Allergy Intermediate Rash 08/14/17 Yes bupropion Allergy Intermediate 04/17/18 Yes morphine Allergy Intermediate 04/17/18 Yes diphenhydramine Adverse Reaction Intermediate OTHER 08/14/17 Yes Physical Exam Physical Exam Constitutional: Well developed, well nourished, no acute distress, non-toxic appearance. [] HENT: Normocephalic, atraumatic, bilateral external ears normal, oropharynx moist, no oral exudates, nose normal. [] Eyes: PERRLA, EOMI, conjunctiva normal, no discharge. [] Neck: Normal range of motion, no tenderness, supple, no stridor. [] Cardiovascular: Regular rate and rhythm[] Lungs & Thorax: Bilateral breath sounds clear to auscultation [] Abdomen: Bowel sounds normal, soft, no tenderness. [] Skin: Warm, dry, no erythema, no rash. [] Extremities: No tenderness, no cyanosis, no clubbing, ROM intact, no edema. [] Neurologic: Alert and oriented X 3, no focal deficits noted. [] Current Patient Data Vital Signs Vital Signs Date Time Temp Pulse Resp B/P (MAP) Pulse Ox O2 Delivery O2 Flow Rate FiO2 08/23/18 19:50 97.9 97 18 136/82 (100) 99 Room Air 97.9 EKG EKG [] Radiology/Procedures Radiology/Procedures [] Impressions: REASON: severe headache, HX OF STROKE AND RT SIDED TBI PROCEDURE: CT HEAD WO CONTRAST EXAM: Head CT without contrast. HISTORY: Headache. Prior traumatic brain injury. TECHNIQUE: Computed tomographic images of the head were obtained without contrast. *One or more of the following individualized dose reduction techniques were utilized for this examination: 1. Automated exposure control. 2. Adjustment of the mA and/or kV according to patient size. 3. Use of iterative reconstruction technique. COMPARISON: None. FINDINGS: There is no acute or subacute extra-axial or intraparenchymal hemorrhage. There is no mass effect or midline shift. There is no hydrocephalus. There are multiple scattered focal areas of hypodensity within the cerebral white matter, likely due to encephalomalacia. These are predominantly within the posterior left parietal and bilateral occipital lobes. There may also be hypodense lesions within the cerebellar hemispheres. The visualized portions of the orbits, paranasal sinuses and mastoid air cells are unremarkable. No suspicious calvarial lesion is seen. IMPRESSION: 1. No acute intracranial finding. Note is made that MRI is more sensitive for acute subacute infarction. 2. Scattered areas of hypodensity within the cerebral white matter, primarily within the posterior distribution. There are similar hypodense areas within the cerebellar hemispheres. Given a history of prior traumatic brain injury, these may be due to areas of encephalomalacia following chronic hemorrhage. The differential also includes areas of chronic infarction. This can be better assessed with an MRI. Electronically signed by: Kayleen Krishna MD (08/23/2018 9:16 PM) [facility] Course & Med Decision Making Course & Med Decision Making Pertinent Labs and Imaging studies reviewed. (See chart for details) [] Dragon Disclaimer Dragon Disclaimer This electronic medical record was generated, in whole or in part, using a voice recognition dictation system. Departure Departure Impression: Primary Impression: Acute headache Disposition: 01 HOME, SELF-CARE Condition: STABLE Referrals: JAMILA GARCIA MD (PCP) Patient Instructions: General Headache Without Cause Scripts Butalbital/Aspirin/Caffeine (FIORINAL 50-325-40 MG CAPSULE) 1 Each Capsule 1 EACH PO Q6HRS PRN for HEADACHE, #15 CAP Prov: KERVIN RIOS Jr. DO 08/23/18 Problem Qualifiers Primary Impression: Acute headache Headache type: unspecified Intractability: not intractable Qualified Codes: R51 - Headache KERVIN RIOS Jr. DO August 23, 2018 20:47
[2018-08-23] MEDS ORDERED: METOCLOPRAMIDE HCL 10 MG/2 ML VIAL. IM ONE (21:15)
[2018-08-23] MEDS ORDERED: SUMAtriptan SUCC 6 MG/0.5 ML VIAL. SQ ONE (21:15)
--- NOTE | 2018-08-23 21:19 | RAD ---
EXAM: Head CT without contrast. HISTORY: Headache. Prior traumatic brain injury. TECHNIQUE: Computed tomographic images of the head were obtained without contrast. *One or more of the following individualized dose reduction techniques were utilized for this examination: 1. Automated exposure control. 2. Adjustment of the mA and/or kV according to patient size. 3. Use of iterative reconstruction technique. COMPARISON: None. FINDINGS: There is no acute or subacute extra-axial or intraparenchymal hemorrhage. There is no mass effect or midline shift. There is no hydrocephalus. There are multiple scattered focal areas of hypodensity within the cerebral white matter, likely due to encephalomalacia. These are predominantly within the posterior left parietal and bilateral occipital lobes. There may also be hypodense lesions within the cerebellar hemispheres. The visualized portions of the orbits, paranasal sinuses and mastoid air cells are unremarkable. No suspicious calvarial lesion is seen. IMPRESSION: 1. No acute intracranial finding. Note is made that MRI is more sensitive for acute subacute infarction. 2. Scattered areas of hypodensity within the cerebral white matter, primarily within the posterior distribution. There are similar hypodense areas within the cerebellar hemispheres. Given a history of prior traumatic brain injury, these may be due to areas of encephalomalacia following chronic hemorrhage. The differential also includes areas of chronic infarction. This can be better assessed with an MRI. Electronically signed by: Kayleen Krishna MD (08/23/2018 9:16 PM) [facility]
[2018-08-23] MEDS ORDERED: BUTA1CAP31 PO (21:33)
== END 2018-08-23 21:41 | disposition home or self-care (01) ==
LOC: ER 19:42
DX: R51 Headache (principal); K21.9 Gastro-esophageal reflux disease without esophagitis; J44.9 Chronic obstructive pulmonary disease, unspecified; F41.9 Anxiety disorder, unspecified; F32.9 Major depressive disorder, single episode, unspecified; Z86.73 Personal history of transient ischemic attack (TIA), and cerebral infarction without residual deficits; Z87.820 Personal history of traumatic brain injury; Z88.1 Allergy status to other antibiotic agents; Z88.5 Allergy status to narcotic agent; Z91.040 Latex allergy status; Z88.8 Allergy status to other drugs, medicaments and biological substances
CPT/HCPCS: 70450; 96372; 99284; J2765; J3030

== ENCOUNTER 2018-12-14 05:50 | Emergency (ER) | payer OTHER ==
[~2018-12-14] VITALS: Ht 162.6 cm; Wt 83.5 kg
[~2018-12-14 05:50] MED LIST changes: +BUTA1CAP31 PO; +BUTA1TAB23 PO; +CLON-77 PO; -CLON0.5T11 PO; -D-ME118S2 PO; +PROM118S9 PO
[2018-12-14 05:59] VITALS: BP 141/62
[2018-12-14] MEDS ORDERED: HYDR5SUS PO (06:12)
--- NOTE | 2018-12-14 06:12 | PHYS DOC ---
Past Medical History Past Medical History: Anxiety, Asthma, COPD, CVA, Depression, GERD, Seizure, Stroke Additional Past Medical Histor: R SIDE DEFICITS, TBI, INSOMNIA Past Surgical History: Hysterectomy, Tubal ligation, Other Additional Past Surgical Histo: LEFT SHOULDER, CLAVICLE FROM [facility] [place], CYST REMOVAL 07/2018 BUTTOCKS Alcohol Use: None Drug Use: None Adult General Chief Complaint Chief Complaint: cough and congestion HPI HPI Patient is a 38 year old female who presents with complaining of cough and congestion and hurting all over. She complaining of productive cough with yellow and green sputum, fever up to 101, myalgia, nasal congestion, sore throat, headache, diarrhea for the last 3 days that did not get better with taking Tylenol. Patient state she has sick contacts at home. Patient denies chest pain, vomiting, focal neuro deficit. Review of Systems Review of Systems Constitutional: Reports fever Eyes: Denies change in visual acuity, redness, or eye pain [] HENT: Reports nasal congestion, sore throat, earache Respiratory: Reports cough and shortness of breath Cardiovascular: No additional information not addressed in HPI [] GI: Denies abdominal pain, nausea, vomiting, bloody stools, reports diarrhea [] : Denies dysuria or hematuria [] Musculoskeletal: Denies back pain or joint pain [] Integument: Denies rash or skin lesions [] Neurologic: Denies headache, focal weakness or sensory changes [] Endocrine: Denies polyuria or polydipsia [] All other systems were reviewed and found to be within normal limits, except as documented in this note. Current Medications Current Medications Current Medications Medications (Trade) Dose Ordered Sig/[facility] Start Time Stop Time Status Last Admin Dose Admin Acetaminophen/ Hydrocodone Bitart (Lortab 5/325) 2 tab 1X ONCE 12/14/18 06:15 12/14/18 06:16 DC 12/14/18 06:19 2 TAB Allergies Allergies Allergies Coded Allergies Type Severity Reaction Last Updated Verified amoxicillin Allergy Severe diarrhea 12/03/17 Yes clavulanic acid Allergy Severe diarrhea 12/03/17 Yes Latex, Natural Rubber Allergy Intermediate Rash 08/14/17 Yes bupropion Allergy Intermediate 04/17/18 Yes morphine Allergy Intermediate 04/17/18 Yes diphenhydramine Adverse Reaction Intermediate OTHER 08/14/17 Yes Physical Exam Physical Exam Constitutional: Well developed, well nourished, mild distress, non-toxic appearance. [] HENT: Normocephalic, atraumatic. Moist oral mucosa, no tonsillar exudate, normal tympanic membrane, nasal congestion Eyes: PERRLA, EOMI, conjunctiva normal, no discharge. [] Neck: Normal range of motion, no tenderness, supple, no stridor. [] Cardiovascular:Heart rate regular rhythm, no murmur [] Lungs & Thorax: Bilateral breath sounds clear to auscultation [] Abdomen: Bowel sounds normal, soft, no tenderness, no masses, no pulsatile masses. [] Skin: Warm, dry, no erythema, no rash. [] Back: No tenderness, no CVA tenderness. [] Extremities: No tenderness, no cyanosis, no clubbing, ROM intact, no edema. [] Neurologic: Alert and oriented X 3, no focal deficits noted. [] Psychologic: Affect anxious, judgement normal, mood normal. [] Current Patient Data Vital Signs Vital Signs Date Time Temp Pulse Resp B/P (MAP) Pulse Ox O2 Delivery O2 Flow Rate FiO2 12/14/18 06:19 20 Room Air 12/14/18 05:59 98.6 85 141/62 (88) 99 98.6 EKG EKG [] Radiology/Procedures Radiology/Procedures [] Course & Med Decision Making Course & Med Decision Making Evaluation of patient in ER showed 38-year-old male patient with complaining of cough and congestion and sore throat and earache and body ache and fever for the last 3 days after she had sick contacts at home. Patient was afebrile in ER and had stable vital signs. Patient treated with hydrocodone in ER and plan to discharge patient home with diagnose of viral upper respiratory infection. Dragon Disclaimer Dragon Disclaimer This electronic medical record was generated, in whole or in part, using a voice recognition dictation system. Departure Departure Impression: Primary Impression: Viral upper respiratory infection Disposition: HOME, SELF-CARE (at 0611) Condition: STABLE Referrals: JAMILA GARCIA MD (PCP) Patient Instructions: Cough, Adult, Fever, Adult, Upper Respiratory Infection, Adult Additional Instructions: Drink plenty of liquids Follow-up with your primary care physician in 3-5 days Return to ER if not getting better Alternate Tylenol and ibuprofen every 4 hours as needed for fever and pain Scripts Hydrocodone/Chlorphen Polis (HYDROCODONE-CHLORPHENIRAM SUSP) 5 Ml [place].er.[id number] 5 ML PO PRN Q12HR PRN for COUGH, #60 ML 0 Refills Prov: DARIA LIU MD 12/14/18 DARIA LIU MD Dec 14, 2018 06:12
[2018-12-14] MEDS ORDERED: HYDROcodone/APAP 5/325MG 1 TAB TABLET PO ONE (06:15)
== END 2018-12-14 06:23 | disposition home or self-care (01) ==
LOC: ER 05:50
DX: J06.9 Acute upper respiratory infection, unspecified (principal); J44.9 Chronic obstructive pulmonary disease, unspecified; F41.9 Anxiety disorder, unspecified; K21.9 Gastro-esophageal reflux disease without esophagitis; F32.9 Major depressive disorder, single episode, unspecified; Z86.73 Personal history of transient ischemic attack (TIA), and cerebral infarction without residual deficits; Z90.710 Acquired absence of both cervix and uterus; Z98.51 Tubal ligation status; Z88.1 Allergy status to other antibiotic agents; Z88.5 Allergy status to narcotic agent; Z88.8 Allergy status to other drugs, medicaments and biological substances; Z91.040 Latex allergy status
CPT/HCPCS: 99283

== ENCOUNTER 2019-03-23 13:05 | Emergency (ER) | payer OTHER ==
[~2019-03-23] VITALS: Ht 162.6 cm; Wt 94.3 kg
[~2019-03-23 13:05] MED LIST changes: +HYDR5SUS PO
[2019-03-23 13:21] VITALS: BP 120/80
[2019-03-23 13:28] LABS: BILIRUBIN,URINE NEGATIVE (NEG); CLARITY,URINE CLEAR; COLOR,URINE YELLOW; NITRITE,URINE NEGATIVE (NEG); PROTEIN,URINE NEGATIVE (NEG-TRACE); UROBILINOGEN,URINE 0.2 mg/dL (0.2 mg/dL)
[2019-03-23] MEDS ORDERED: IV NORMAL SALINE 1000ML BAG 1,000 ML IV ONE (13:30)
[2019-03-23] MEDS ORDERED: ONDANSETRON PF 4 MG/2 ML VIAL. IV ONE (13:30)
[2019-03-23 13:38] LABS: BASO # 0.1 x10^3/uL (0.0-0.2); BASO % 1 % (0-3); EOS # 0.3 x10^3/uL (0.0-0.7); EOS % 3 % (0-3); HEMATOCRIT 37.6 % (36.0-47.0); HEMOGLOBIN 12.9 g/dL (12.0-15.5); LYMPH # 3.7 x10^3/uL (1.0-4.8); LYMPH % 37 % (24-48); MEAN CORPUSCULAR HEMOGLOBIN 30 pg (25-35); MEAN CORPUSCULAR HGB CONC 34 g/dL (31-37); MEAN CORPUSCULAR VOLUME 87 fL (79-100); MONO # 0.5 x10^3/uL (0.0-1.1); MONO % 5 % (0-9); NEUT # 5.3 x10^3/uL (1.8-7.7); NEUT % 54 % (31-73); PLATELET COUNT 336 x10^3/uL (140-400); RED BLOOD COUNT 4.33 x10^6/uL (3.50-5.40); RED CELL DISTRIBUTION WIDTH 15.3 % (11.5-14.5); WHITE BLOOD COUNT 9.8 x10^3/uL (4.0-11.0)
[2019-03-23 13:44] LABS: CALCIUM 8.7 mg/dL (8.5-10.1); CREATININE 0.9 mg/dL (0.6-1.0); GFR 84.8; POTASSIUM 3.8 mmol/L (3.5-5.1)
[2019-03-23 13:45] LABS: SQUAMOUS EPITHELIAL CELL,UR MOD /LPF
[2019-03-23 13:46] LABS: BACTERIA,URINE FEW /HPF (0-FEW)
[2019-03-23 13:50] LABS: ALBUMIN 3.8 g/dL (3.4-5.0); ALBUMIN/GLOBULIN RATIO 0.9 (1.0-1.7); TOTAL BILIRUBIN 0.2 mg/dL (0.2-1.0); TOTAL PROTEIN 8.1 g/dL (6.4-8.2)
--- NOTE | 2019-03-23 14:09 | PHYS DOC ---
Past Medical History Past Medical History: Anxiety, Asthma, COPD, CVA, Depression, GERD, Seizure, Stroke Additional Past Medical Histor: R SIDE DEFICITS, TBI, INSOMNIA Past Surgical History: Hysterectomy, Tubal ligation, Other Additional Past Surgical Histo: LEFT SHOULDER, CLAVICLE FROM [facility] [place], CYST REMOVAL 07/2018 BUTTOCKS Additional Information: "vape" Alcohol Use: None Drug Use: None Adult General Chief Complaint Chief Complaint: NAUSEA/VOMITING/DIARRHA HPI HPI Patient is a 38 year old female who presents to the emergency department with complaints of nausea, vomiting, diarrhea, and abdominal cramps for the last 3 days. Patient states she has had at least 8 episodes of vomiting and 8 episodes of diarrhea today. She denies any blood in her stool or emesis. Patient reports decreased urine output, she denies any dysuria, hematuria, low back pain, or difficulty voiding. Patient denies any fever, cough, headache, vision changes, sore throat, ear pain, shortness of breath, abdominal pain, or wheezing. She denies any recent use of antibiotics or known exposure to the C. difficile. 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 Patient currently rates her pain a 4 out of 10 on the pain scale she denies any alleviating factors, the pain increases when she has the urge to have diarrhea. All other ROS is neg unless otherwise noted in HPI. Review of Systems Review of Systems See Above Current Medications Current Medications Current Medications Medications (Trade) Dose Ordered Sig/[facility] Start Time Stop Time Status Last Admin Dose Admin Ondansetron HCl (Zofran) 4 mg 1X ONCE 03/23/19 13:30 03/23/19 13:31 DC 03/23/19 14:14 4 MG Sodium Chloride 1,000 ml @ 1,000 mls/hr 1X ONCE 03/23/19 13:30 03/23/19 14:29 DC 03/23/19 14:14 1,000 MLS/HR Allergies Allergies Allergies Coded Allergies Type Severity Reaction Last Updated Verified amoxicillin Allergy Severe diarrhea 12/03/17 Yes clavulanic acid Allergy Severe diarrhea 12/03/17 Yes Latex, Natural Rubber Allergy Intermediate Rash 08/14/17 Yes bupropion Allergy Intermediate 04/17/18 Yes morphine Allergy Intermediate 04/17/18 Yes diphenhydramine Adverse Reaction Intermediate OTHER 08/14/17 Yes Physical Exam Physical Exam See Above Constitutional: Well developed, well nourished, no acute distress, non-toxic a ppearance. [] HENT: Normocephalic, atraumatic, bilateral external ears normal, dry mucous membranes, no oral exudates, nose normal. [] Eyes: PERRLA, EOMI, conjunctiva normal, no discharge. [] Neck: Normal range of motion, no stridor. [] Cardiovascular:Heart rate regular rhythm, no murmur [] Lungs & Thorax: Bilateral breath sounds clear to auscultation [] Abdomen: Bowel sounds normal, soft, no tenderness, no masses, no pulsatile masses. [] Skin: Warm, dry, no erythema, no rash. [] Back: No CVA tenderness. [] Extremities: No cyanosis, ROM intact, no edema. [] Neurologic: Alert and oriented X 3, no focal deficits noted. [] Psychologic: Affect normal, judgement normal, mood normal. [] Current Patient Data Vital Signs Vital Signs Date Time Temp Pulse Resp B/P (MAP) Pulse Ox O2 Delivery O2 Flow Rate FiO2 03/23/19 13:21 97.9 98 16 120/80 (93) 98 Room Air 97.9 Lab Values Laboratory Tests Test 03/23/19 13:10 03/23/19 13:18 03/23/19 13:25 Urine Collection Type Unknown Urine Color Yellow Urine Clarity Clear Urine pH 6.0 Urine Specific [place] >=1.030 Urine Protein Negative mg/dL (NEG-TRACE) Urine Glucose (UA) Negative mg/dL (NEG) Urine Ketones (Stick) Trace mg/dL (NEG) Urine Blood Small (NEG) Urine Nitrite Negative (NEG) Urine Bilirubin Negative (NEG) Urine Urobilinogen Dipstick 0.2 mg/dL (0.2 mg/dL) Urine Leukocyte Esterase Negative (NEG) Urine RBC 3-5 /HPF (0-2) Urine WBC 1-4 /HPF (0-4) Urine Squamous Epithelial Cells Mod /LPF Urine Bacteria Few /HPF (0-FEW) Urine Mucus Mod /LPF POC Urine HCG, Qualitative Hcg negative (Negative) White Blood Count 9.8 x10^3/uL (4.0-11.0) Red Blood Count 4.33 x10^6/uL (3.50-5.40) Hemoglobin 12.9 g/dL (12.0-15.5) Hematocrit 37.6 % (36.0-47.0) Mean Corpuscular Volume 87 fL (79-100) Mean Corpuscular Hemoglobin 30 pg (25-35) Mean Corpuscular Hemoglobin Concent 34 g/dL (31-37) Red Cell Distribution Width 15.3 % (11.5-14.5) H Platelet Count 336 x10^3/uL (140-400) Neutrophils (%) (Auto) 54 % (31-73) Lymphocytes (%) (Auto) 37 % (24-48) Monocytes (%) (Auto) 5 % (0-9) Eosinophils (%) (Auto) 3 % (0-3) Basophils (%) (Auto) 1 % (0-3) Neutrophils # (Auto) 5.3 x10^3/uL (1.8-7.7) Lymphocytes # (Auto) 3.7 x10^3/uL (1.0-4.8) Monocytes # (Auto) 0.5 x10^3/uL (0.0-1.1) Eosinophils # (Auto) 0.3 x10^3/uL (0.0-0.7) Basophils # (Auto) 0.1 x10^3/uL (0.0-0.2) Sodium Level 140 mmol/L (136-145) Potassium Level 3.8 mmol/L (3.5-5.1) Chloride Level 105 mmol/L (98-107) Carbon Dioxide Level 24 mmol/L (21-32) Anion Gap 11 (6-14) Blood Urea Nitrogen 9 mg/dL (7-20) Creatinine 0.9 mg/dL (0.6-1.0) Estimated GFR (Cockcroft-Gault) 84.8 BUN/Creatinine Ratio 10 (6-20) Glucose Level 91 mg/dL (70-99) Calcium Level 8.7 mg/dL (8.5-10.1) Total Bilirubin 0.2 mg/dL (0.2-1.0) Aspartate Amino Transferase (AST) 12 U/L (15-37) L Alanine Aminotransferase (ALT) 18 U/L (14-59) Alkaline Phosphatase 71 U/L (46-116) Total Protein 8.1 g/dL (6.4-8.2) Albumin 3.8 g/dL (3.4-5.0) Albumin/Globulin Ratio 0.9 (1.0-1.7) L Lipase 46 U/L (73-393) L Laboratory Tests 03/23/19 13:25 Laboratory Tests 03/23/19 13:25 EKG EKG [] Radiology/Procedures Radiology/Procedures [] Course & Med Decision Making Course & Med Decision Making Pertinent Labs and Imaging studies reviewed. (See chart for details) [] Dragon Disclaimer Dragon Disclaimer This electronic medical record was generated, in whole or in part, using a voice recognition dictation system. Departure Departure Impression: Primary Impression: Dehydration Additional Impression: Nausea, vomiting, and diarrhea Disposition: HOME, SELF-CARE Condition: STABLE Referrals: JAMILA GARCIA MD (PCP) Patient Instructions: Diarrhea, [id number], Diet for Diarrhea, Adult, Nausea and Vomiting, [id number] Additional Instructions: Fill prescriptions and use them as directed. Recommend clear fluids for the next 24 hours. Then you may advance to bland foods such as bananas, rice, applesauce, and dry toast. The results from your stool cultures and will not be available until tomorrow. We will notify you if anything comes back abnormal. F ollow-up with your primary care doctor in the next 1-2 days. Return to the emergency room if your symptoms worsen. Scripts Ondansetron Hcl (ONDANSETRON HCL) 4 Mg Tablet 1 TAB PO PRN Q6HRS PRN for NAUSEA/VOMITING for 3 Days, #10 TAB 0 Refills Prov: NATALIA STOREY APRN 03/23/19 Problem Qualifiers NATALIA STOREY APRN Mar 23, 2019 14:09
[2019-03-23] MEDS ORDERED: ONDA4TAB11 PO (15:41)
== END 2019-03-23 15:50 | disposition home or self-care (01) ==
LOC: ER 13:05
DX: E86.0 Dehydration (principal); R11.2 Nausea with vomiting, unspecified; R19.7 Diarrhea, unspecified; J44.9 Chronic obstructive pulmonary disease, unspecified; K21.9 Gastro-esophageal reflux disease without esophagitis; Z86.73 Personal history of transient ischemic attack (TIA), and cerebral infarction without residual deficits; Z90.710 Acquired absence of both cervix and uterus; Z98.51 Tubal ligation status; Z88.1 Allergy status to other antibiotic agents; Z88.5 Allergy status to narcotic agent; Z91.040 Latex allergy status; Z88.8 Allergy status to other drugs, medicaments and biological substances
CPT/HCPCS: 36415; 80053; 81001; 81025; 83690; 85025; 87045; 87205; 87493; 96361; 96374; 99284; J2405; J7030

== ENCOUNTER 2019-03-29 14:22 | Emergency (ER) | payer OTHER ==
[~2019-03-29] VITALS: Ht 162.6 cm; Wt 94.3 kg
[~2019-03-29 14:22] MED LIST changes: +ONDA4TAB11 PO
[2019-03-29 14:43] VITALS: BP 131/81
[2019-03-29] MEDS ORDERED: BENZ100C PO (15:08)
--- NOTE | 2019-03-29 15:08 | PHYS DOC ---
Past Medical History Past Medical History: Anxiety, Asthma, COPD, CVA, Depression, GERD, Seizure, Stroke Additional Past Medical Histor: R SIDE DEFICITS, TBI, INSOMNIA Past Surgical History: Hysterectomy, Tubal ligation, Other Additional Past Surgical Histo: LEFT SHOULDER, CLAVICLE FROM [facility], CYST REMOVAL 07/2018 BUTTOCKS Alcohol Use: None Drug Use: None Adult General Chief Complaint Chief Complaint: COUGH HPI HPI Patient is a 38 year old [f__sex] who presents with [] Review of Systems Review of Systems Constitutional: Denies fever or chills [] Eyes: Denies change in visual acuity, redness, or eye pain [] HENT: Denies nasal congestion or sore throat [] Respiratory: Denies cough or shortness of breath [] Cardiovascular: No additional information not addressed in HPI [] GI: Denies abdominal pain, nausea, vomiting, bloody stools or diarrhea [] : Denies dysuria or hematuria [] Musculoskeletal: Denies back pain or joint pain [] Integument: Denies rash or skin lesions [] Neurologic: Denies headache, focal weakness or sensory changes [] Endocrine: Denies polyuria or polydipsia [] All other systems were reviewed and found to be within normal limits, except as documented in this note. Allergies Allergies Allergies Coded Allergies Type Severity Reaction Last Updated Verified amoxicillin Allergy Severe diarrhea 12/03/17 Yes clavulanic acid Allergy Severe diarrhea 12/03/17 Yes Latex, Natural Rubber Allergy Intermediate Rash 08/14/17 Yes bupropion Allergy Intermediate 04/17/18 Yes morphine Allergy Intermediate 04/17/18 Yes diphenhydramine Adverse Reaction Intermediate OTHER 08/14/17 Yes Physical Exam Physical Exam Constitutional: Well developed, well nourished, no acute distress, non-toxic appearance. [] HENT: Normocephalic, atraumatic, bilateral external ears normal, oropharynx moist, no oral exudates, nose normal. [] Eyes: PERRLA, EOMI, conjunctiva normal, no discharge. [] Neck: Normal range of motion, no tenderness, supple, no stridor. [] Cardiovascular:Heart rate regular rhythm, no murmur [] Lungs & Thorax: Bilateral breath sounds clear to auscultation [] Abdomen: Bowel sounds normal, soft, no tenderness, no masses, no pulsatile masses. [] Skin: Warm, dry, no erythema, no rash. [] Back: No tenderness, no CVA tenderness. [] Extremities: No tenderness, no cyanosis, no clubbing, ROM intact, no edema. [] Neurologic: Alert and oriented X 3, normal motor function, normal sensory function, no focal deficits noted. [] Psychologic: Affect normal, judgement normal, mood normal. [] Current Patient Data Vital Signs Vital Signs Date Time Temp Pulse Resp B/P (MAP) Pulse Ox O2 Delivery O2 Flow Rate FiO2 03/29/19 14:43 98.5 96 22 131/81 (98) 95 Room Air 98.5 EKG EKG [] Radiology/Procedures Radiology/Procedures [] Course & Med Decision Making Course & Med Decision Making Pertinent Labs and Imaging studies reviewed. (See chart for details) [] Dragon Disclaimer Dragon Disclaimer This electronic medical record was generated, in whole or in part, using a voice recognition dictation system. Departure Departure Impression: Primary Impression: Flu-like symptoms Additional Impression: Pharyngitis Disposition: 01 HOME, SELF-CARE Condition: STABLE Referrals: JAMILA GARCIA MD (PCP) Patient Instructions: Influenza, Adult, [id number], Viral and Bacterial Pharyngitis, [id number] Additional Instructions: Fill prescription(s) and use as directed. Recommend use of a Cool mist humidifier in room at bedtime. Alternate Tylenol or ibuprofen as needed for pain/fever. Increase clear fluids. Avoid airway triggers such as smoke, fragrance, dust, and pollen. Follow-up with your primary care doctor if symptoms persist, return to the ER if symptoms worsen. Scripts Benzonatate (TESSALON PERLE) 100 Mg Capsule 1 CAP PO TID PRN for COUGH for 7 Days, #21 CAP 0 Refills Prov: NATALIA STOREY APRN 03/29/19 Problem Qualifiers Additional Impression: Pharyngitis Pharyngitis/tonsillitis etiology: unspecified etiology Qualified Codes: J02.9 - Acute pharyngitis, unspecified NATALIA STOREY [employer] COMPLIANCE REPRESENTATIVE Mar 29, 2019 15:08
== END 2019-03-29 15:43 | disposition home or self-care (01) ==
LOC: ER 14:22
DX: J11.1 Influenza due to unidentified influenza virus with other respiratory manifestations (principal); J44.9 Chronic obstructive pulmonary disease, unspecified; K21.9 Gastro-esophageal reflux disease without esophagitis; Z86.73 Personal history of transient ischemic attack (TIA), and cerebral infarction without residual deficits; Z88.1 Allergy status to other antibiotic agents; Z88.5 Allergy status to narcotic agent; Z91.040 Latex allergy status; Z88.8 Allergy status to other drugs, medicaments and biological substances
CPT/HCPCS: 87070; 87880; 99283